=== PATIENT | female | born 1955 | race Caucasian/White ===

== ENCOUNTER 2017-02-03 19:05 | Inpatient (IN) | payer OTHER ==
[2017-02-03] MEDS ORDERED: RX INFO: IV CONTRAST WAS GIVEN 1 EACH MISC MISCELLANE PRN (19:26)
--- NOTE | 2017-02-03 19:27 | ED ---
Chest Pain HPI - General Chief Complaint: Chest Pain Stated Complaint: chest pain Time Seen by Provider: 02/03/17 19:10 Source: patient Mode of arrival: wheelchair Limitations: no limitations - History of Present Illness Initial Comments: This patient is a 61-year-old woman with history of previous DVT, who presents to be evaluated because she is having left thigh pain and also some chest tightness and feeling short of breath. She states that the pain was reminding her of what she had with previous PE. MD Complaint: chest pain -: days(s) Onset: during rest Pain Location: left chest, right chest Pain Radiation: none Severity: moderate Quality: tightness Consistency: constant Improves With: nothing Worsens With: nothing Treatments Prior to Arrival: none - Related Data Home Medications Medication Instructions Recorded Confirmed Furosemide [Lasix] 40 mg PO DAILY PRN 10/14/15 03/21/16 Omeprazole [PriLOSEC] 20 mg PO [id number] 10/14/15 03/22/16 Previous Rx's Medication Instructions Recorded Enoxaparin [Lovenox] 100 mg SQ Q12H #1 syr 10/19/15 Fluticasone Nasal [place] [Flonase 1 spray EA NOSTRIL DAILY #1 spr 10/19/15 Nasal [place]] Montelukast [Singulair] 10 mg PO HS #30 tab 10/19/15 Oxybutynin Chloride [Ditropan] 5 mg PO DAILY #0 10/19/15 oxyCODONE-APAP 7.5-325MG [Percocet 1 each PO Q6HR PRN #28 tab 10/19/15 7.5-325 mg] traZODone HCL 150 mg PO HS #0 10/19/15 Allergies Allergy/AdvReac Type Severity Reaction Status Date / Time codeine Allergy Rash/Hives Verified 02/03/17 19:19 hydrocodone bitartrate Allergy Rash/Hives Verified 02/03/17 19:19 [From [place]] Review of Systems ROS Statement: Those systems with pertinent positive or pertinent negative responses have been documented in the HPI. ROS Other: All systems not noted in ROS Statement are negative. Constitutional: Denies: fever, chills Respiratory: Reports: dyspnea. Denies: cough, wheezes, hemoptysis Cardiovascular: Reports: chest pain. Denies: palpitations, edema, syncope Gastrointestinal: Denies: abdominal pain, nausea, vomiting Genitourinary: Denies: dysuria, hematuria Musculoskeletal: Denies: back pain Skin: Denies: rash Neurological: Denies: headache, weakness, numbness (Eye:) EKG Findings - EKG Results: EKG: interpreted by LANCE, sinus rhythm (78) - Blocks, [place], Hypertrophy, ST Abn: QRS axis and voltage: left axis deviation (-30 to -90) Repolarization changes or abnormalities: Q-T interval prolongation Past Medical History Past Medical History: Deep Vein Thrombosis (DVT), GERD/Reflux, Pulmonary Embolus (PE) Additional Past Medical History / Comment(s): MTHFR "coke bottle" L leg, beginning macular degeneration bilat, sinus problems. History of Any Multi-Drug Resistant Organisms: None Reported Past Surgical History: Appendectomy, Cholecystectomy, Hysterectomy, Orthopedic Surgery Additional Past Surgical History / Comment(s): Kaylyn filter, L achilles tendon repair, left leg stents 3 or 4, R rotator cuff repair, bilateral knee arthroscopies, 2012 ccath normal, GABI, bronchoscopy. Past Anesthesia/Blood Transfusion Reactions: No Reported Reaction, Motion Sickness Additional Past Anesthesia/Blood Transfusion Reaction / Comment(s): Pt has clausterphobia Past Psychological History: Depression Additional Psychological History / Comment(s): Pt resides with her spouse. She uses no device (she does have a cane but choses not to use it at this point), she drives. She is the mother of 11 children and is expecting their 9th grandchild. 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 She drives. Smoking Status: Never smoker Past Alcohol Use History: None Reported Past Drug Use History: None Reported - Past Family History Father Family Medical History: Cancer Additional Family Medical History / Comment(s): Father had bladder cancer and lung cancer. Mother Family Medical History: Cancer, Deep Vein Thrombosis (DVT) Additional Family Medical History / Comment(s): Mother of ovarian cancer, General Exam Limitations: no limitations General appearance: alert, in no apparent distress Head exam: Present: atraumatic, normocephalic Eye exam: Present: normal appearance. Absent: scleral icterus, conjunctival injection Neck exam: Present: normal inspection, full ROM Respiratory exam: Present: normal lung sounds bilaterally. Absent: respiratory distress, wheezes, rales, rhonchi Cardiovascular Exam: Present: regular rate, normal rhythm, normal heart sounds GI/Abdominal exam: Present: soft (we're). Absent: distended, tenderness, guarding, rebound Extremities exam: Present: normal inspection, normal capillary refill. Absent: pedal edema, calf tenderness Back exam: Present: normal inspection. Absent: CVA tenderness (R), CVA tenderness (L) Neurological exam: Present: alert Skin exam: Present: warm, dry, intact, normal color. Absent: rash Course Vital Signs 02/03/17 02/03/17 19:16 21:40 Temperature 97.7 F Pulse Rate 67 75 Respiratory 20 16 Rate Blood Pressure 143/78 147/78 O2 Sat by Pulse 97 96 Oximetry Disposition Clinical Impression: Chest pain Disposition: ADMITTED IP TO THIS HOSP Condition: Fair Referrals: Luis Manuel Roberts MD [Primary Care Provider] - 1-2 days
[2017-02-03 20:58] LABS: Aty Lym Flag Slight; CH 31.8; CHCM 34.8; HCT 37.3 % (34.0-46.0); HGB 12.7 gm/dL (11.4-16.0); MCH 31.3 pg (25.0-35.0); MCHC 34.1 g/dL (31.0-37.0); MCV 91.8 fL (80.0-100.0); Mean Platelet Volume 7.2; RBC 4.06 m/uL (3.80-5.40); WBC 5.5 k/uL (3.8-10.6); WBC (Perox) 5.42
--- NOTE | 2017-02-03 21:02 | CT ---
EXAMINATION TYPE: CT chest angio for PE DATE OF EXAM: 02/03/2017 COMPARISON: CTA chest March 13, 2016. HISTORY: SOB and chest tightness. CT DLP: 462.6 mGycm. Automated Exposure Control for Dose Reduction was Utilized. CONTRAST: CTA scan of the thorax is performed with IV Contrast, patient injected with 70 mL of Omnipaque 350, p ulmonary embolism protocol. MIP Images are created on CT scanner and reviewed. FINDINGS: LUNGS: The lungs are grossly clear, there is no concerning parenchymal mass or nodule identified. T here is no pleural effusion or pneumothorax seen. The tracheobronchial tree is patent. MEDIASTINUM: There is satisfactory enhancement of the pulmonary artery and its branches, there is no CT evidence for pulmonary embolism. There are no greater than 1 cm hilar or mediastinal lymph nodes. No cardiomegaly or pericardial effusion is seen. OTHER: Visualized spleen is somewhat prominent. IMPRESSION: No CT evidence for pulmonary embolism. No suspicious acute pulmonary process.
[2017-02-03 21:14] LABS: Add Differential Manual Differential
[2017-02-03 21:17] LABS: ALT 50 U/L (9-52); AST 27 U/L (14-36); Alkaline Phosphatase 75 U/L (38-126); Anion Gap 13 mmol/L; Blood Urea Nitrogen 13 mg/dL (7-17); Calcium 9.7 mg/dL (8.4-10.2); Carbon Dioxide 22 mmol/L (22-30); Chloride 108 mmol/L (98-107); Glucose 108 mg/dL (74-99); Magnesium 1.8 mg/dL (1.6-2.3); Manual Review Performed; Non-African American GFR(MDRD) >60 (>60 ml/min/1.73 sqM); Nucleated Red Blood Cells 0 /100 WBC (0-0); Potassium 3.8 mmol/L (3.5-5.1); RBC Morphology Normal; Sodium 143 mmol/L (137-145); Total Bilirubin 0.4 mg/dL (0.2-1.3); Total Cells Counted 100; Total Protein 7.2 g/dL (6.3-8.2)
[2017-02-03 21:20] LABS: INR 1.2 (<1.1); Prothrombin Time 12.3 sec (9.0-12.0)
[2017-02-03 21:23] LABS: Creatine Kinase 131 U/L (30-135)
[2017-02-03 21:25] LABS: Partial Thromboplastin Time 22.3 sec (22.0-30.0)
[2017-02-03 21:37] LABS: Troponin I <0.012 ng/mL (0.000-0.034)
[2017-02-03 21:42] LABS: Creatine Kinase MB 2.6 ng/mL (0.0-2.4)
[2017-02-03] MEDS ORDERED: NITROGLYCERIN SL TABS 0.4 MG TAB SUBLINGUAL PRN (22:18)
[2017-02-03] MEDS ORDERED: ENOXAPARIN 100 MG/ML SYRINGE SQ SCH (23:23)
[2017-02-03] MEDS ORDERED: FUROSEMIDE 40 MG TAB PO PRN (23:53)
[2017-02-03] MEDS ORDERED: ACETAMINOPHEN TAB 500 MG TAB PO PRN (23:53)
[2017-02-03] MEDS ORDERED: HYDROmorphone 2 MG/ML 1 ML SYRINGE IVP PRN (23:57)
[2017-02-03] MEDS ORDERED: HYDROmorphone 1 MG/ML 1 ML SYRINGE IVP PRN (23:57)
[2017-02-04] MEDS ORDERED: ENOXAPARIN 150 MG/ML SYRINGE SQ SCH (00:30)
[2017-02-04] MEDS: oxyCODONE-APAP 7.5-325MG 1 EACH TAB PO PRN ×2 (03:26→20:53)
[2017-02-04 03:29] LABS: Cholesterol 184 mg/dL (<200); HDL Cholesterol 46 mg/dL (40-60); Triglycerides 182 mg/dL (<150)
[2017-02-04 03:48] LABS: Creatine Kinase 89 U/L (30-135)
[2017-02-04 04:00] LABS: Creatine Kinase MB 1.9 ng/mL (0.0-2.4); Troponin I <0.012 ng/mL (0.000-0.034)
[2017-02-04 08:34] LABS: Creatine Kinase 79 U/L (30-135)
[2017-02-04 08:47] LABS: Creatine Kinase MB 1.5 ng/mL (0.0-2.4); Troponin I <0.012 ng/mL (0.000-0.034)
[2017-02-04] MEDS: OXYBUTYNIN CHLORIDE 5 MG TAB PO SCH ×2 (08:51→20:58)
[2017-02-04] MEDS: PANTOPRAZOLE 40 MG TABLET PO SCH ×2 (08:51→20:58)
[2017-02-04] MEDS: MELOXICAM 7.5 MG TAB PO SCH ×2 (08:51→20:57)
[2017-02-04] MEDS: FLUTICASONE 50MCG/SPRAY NASAL 16GM EA NOSTRIL SCH (08:52)
[2017-02-04] MEDS ORDERED: ENOXAPARIN 100 MG/ML SYRINGE SQ SCH ×2 (09:00→21:00)
--- NOTE | 2017-02-04 09:52 | US ---
EXAMINATION TYPE: US venous doppler duplex LE LT DATE OF EXAM: 02/04/2017 9:31 AM COMPARISON: Bilateral lower extremity venous ultrasound May 14, 2016 CLINICAL HISTORY: left thigh pain. Pain left thigh, history of DVT, patient on blood thinner SIDE PERFORMED: Left TECHNIQUE: The lower extremity deep venous system is examined utilizing real time linear array sonog tasha with graded compression, doppler sonography and color-flow sonography. VESSELS IMAGED: External Iliac Vein (EIV) Common Femoral Vein Deep Femoral Vein Greater Saphenous Vein * Femoral Vein Popliteal Vein Small Saphenous Vein * Proximal Calf Veins (* superficial vessels) Left Leg: Positive for DVT left CFV, femoral vein, and popliteal vein. Thready flow noted at these l evels There is incomplete compressibility beginning at common femoral vein level on the left groin extendin g through superficial femoral vein into popliteal vein with patent but diminished color flow. IMPRESSION: There is long segment acute partial occlusive DVT in the left lower extremity now pres ent.
[2017-02-04] MEDS ORDERED: ENOXAPARIN 100 MG/ML SYRINGE SQ STA (11:58)
--- NOTE | 2017-02-04 12:17 | P.HPIM ---
History of Present Illness H&P Date: 02/04/17 Chief Complaint: Left thigh pain, partially occluded DVT This is a 7-year-old patient well-known to Dr. Roberts and myself a previous history of DVT multiple DVTs who presented because of to be evaluated to the emergency room because of left thigh pain and some chest tightness and general shortness of breath. Patient states the pain remainder of when she had a previous pulmonary embolus. 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 Patient also has a history of a Kaylyn filter placement. Review of Systems Constitutional: Reports as per HPI Ears, nose, mouth and throat: Reports as per HPI Cardiovascular: Reports chest pain, Reports shortness of breath Respiratory: Reports dyspnea Gastrointestinal: Reports as per HPI Genitourinary: Reports as per HPI Musculoskeletal: Reports leg numbness/tingling, Reports shooting leg pain Integumentary: Reports as per HPI Neurological: Reports as per HPI Psychiatric: Reports as per HPI Endocrine: Reports as per HPI Hematologic/Lymphatic: Reports as per HPI Allergic/Immunologic: Reports as per HPI Past Medical History Past Medical History: Deep Vein Thrombosis (DVT), GERD/Reflux, Pulmonary Embolus (PE) Additional Past Medical History / Comment(s): MTHFR "coke bottle" L leg, beginning macular degeneration bilat, sinus problems. History of Any Multi-Drug Resistant Organisms: None Reported Past Surgical History: Appendectomy, Cholecystectomy, Hysterectomy, Orthopedic Surgery Additional Past Surgical History / Comment(s): Kaylyn filter, L achilles tendon repair, left leg stents 3 or 4, R rotator cuff repair, bilateral knee arthroscopies, 2012 [facility]ca normal, GABI, bronchoscopy. Past Anesthesia/Blood Transfusion Reactions: No Reported Reaction, Motion Sickness Additional Past Anesthesia/Blood Transfusion Reaction / Comment(s): Pt has clausterphobia Past Psychological History: No Psychological Hx Reported Additional Psychological History / Comment(s): Pt resides with her spouse. She uses no device (she does have a cane but choses not to use it at this point), she drives. She is the mother of 11 children and 8 grandchildren. 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 She drives. Smoking Status: Never smoker Past Alcohol Use History: None Reported Past Drug Use History: None Reported - Past Family History Father Family Medical History: Cancer Additional Family Medical History / Comment(s): Father had bladder cancer and lung cancer. Mother Family Medical History: Cancer, Deep Vein Thrombosis (DVT) Additional Family Medical History / Comment(s): Mother of ovarian cancer, Medications and Allergies Home Medications Medication Instructions Recorded Confirmed Type RX: Furosemide [Lasix] 40 mg PO DAILY PRN 10/14/15 02/04/17 History RX: Omeprazole [PriLOSEC] 20 mg PO BID 10/14/15 02/04/17 History Acetaminophen [Tylenol] 500 mg PO QID PRN 02/03/17 02/04/17 History Enoxaparin [Lovenox] 100 mg SQ DAILY 02/03/17 02/04/17 History Ergocalciferol (Vitamin D2) 50,000 unit PO SA 02/03/17 02/04/17 History [Vitamin D2] RX: Meloxicam [Mobic] 7.5 mg PO BID 02/03/17 02/04/17 History RX: Oxybutynin Chloride [Ditropan] 5 mg PO BID 02/03/17 02/04/17 History oxyCODONE-APAP 7.5-325MG [Percocet 1 tab PO Q6HR PRN 02/04/17 02/04/17 History 7.5-325 mg] Allergies Allergy/AdvReac Type Severity Reaction Status Date / Time adhesive Allergy Rash/Hives Verified 02/04/17 09:50 codeine Allergy Rash/Hives Verified 02/04/17 09:49 egg Allergy Nausea & Verified 02/03/17 22:58 Vomiting hydrocodone bitartrate Allergy Rash/Hives Verified 02/04/17 09:49 [From [place]] Physical Exam Osteopathic Statement: *. No significant issues noted on an osteopathic structural exam other than those noted in the History and Physical/Consult. Vitals: Vital Signs Temp Pulse Pulse Resp BP BP Pulse Ox 02/04/17 11:35 97.9 F 69 16 168/83 95 02/04/17 07:35 97.7 F 69 16 141/64 96 02/04/17 04:00 98 F 80 18 140/71 98 02/03/17 23:29 18 02/03/17 23:20 98.1 F 73 18 166/80 97 02/03/17 22:36 79 16 152/71 95 02/03/17 21:40 75 16 147/78 96 02/03/17 19:16 97.7 F 67 20 143/78 97 Intake and Output 02/03/17 02/04/17 02/04/17 22:59 06:59 14:59 Other: Voiding Method Toilet Toilet # Voids 1 Weight 106.141 kg General: [Patient awake, alert and oriented times 3. Patient in no acute distress.] HEENT: [PERRL. EOMI. No pharyngeal erythema or exudate.] Neck: [No adenopathy.] Cardiac: [Heart regular in rate and rhythm. No S3. No S4. No clicks, rubs. No murmur.] Lungs: [Clear to auscultation bilaterally.] Abdomen: [No mass. No organomegaly. Bowel sounds presnt and normoactive in all 4 quadrants.] Extremes: Left flank tenderness numbness mid thigh to the knee with compressible tenderness Musculoskeletal: [No joint erythema, edema or tenderness.] Skin: [No rash.] Neurologic: [No lateralizing deficits. CN II - XII grossly intact.] Lymphatic: [No adenopathy.] Results CBC & Chem 7: 02/03/17 20:14 02/03/17 20:14 Labs: Abnormal Lab Results - Last 24 Hours (Table) 02/03/17 02/03/17 02/03/17 Range/Units 20:14 20:14 20:14 PT 12.3 H (9.0-12.0) sec Chloride 108 H (98-107) mmol/L Glucose 108 H (74-99) mg/dL CK-MB (CK-2) 2.6 H* (0.0-2.4) ng/mL Triglycerides (<150) mg/dL LDL Cholesterol, Calc (0-99) mg/dL 02/04/17 Range/Units 02:11 PT (9.0-12.0) sec Chloride (98-107) mmol/L Glucose (74-99) mg/dL CK-MB (CK-2) (0.0-2.4) ng/mL Triglycerides 182 H (<150) mg/dL LDL Cholesterol, Calc 102 H (0-99) mg/dL Thrombosis Risk Factor Assmnt - DVT/VTE Prophylaxis DVT/VTE Prophylaxis: Pharmacologic Prophylaxis ordered - Choose All That Apply Any of the Below Risk Factors Present?: Yes Each Factor Represents 1 point: Age 41-60 years, Hx of IBD, Obesity (BMI >25), Swollen legs (current), Varicose veins Other Risk Factors: Yes Each Risk Factor Represents 3 Points: Positive Factor V Leiden, History of DVT/ PE Other congenital or acquired thrombophilia - If yes, enter type in comment: No Thrombosis Risk Factor Assessment Total Risk Factor Score: 11 Thrombosis Risk Factor Assessment Level: High Risk Assessment and Plan (1) Chest pain Narrative/Plan: Negative troponins and EKG is unremarkable, cardiology evaluated patient chest pain atypical noncardiac in nature Also patient's CT demonstrated no pulmonary embolus Status: Acute (2) Hx of deep venous thrombosis Narrative/Plan: Doppler study of the bilateral lower extremes demonstrated a left lower extreme basic thigh to knee occlusion thrombosis with incomplete Status: Acute (3) Pulmonary embolism Narrative/Plan: Left lower extremity DVT patient is currently on 100 units of Lovenox in the morning and 100 units of Lovenox in the evening We will also be consulting Dr. Knox for this patient Status: Acute Plan: Well-known patient history of factor V [place] Left leg DVT mid thigh to knee Lovenox 100 units every 12 hours We'll be consulting Dr. Knox Hem/onc Further orders to follow Time with Patient: Greater than 30
[2017-02-04] MEDS: ASPIRIN 325 MG TAB PO SCH (12:31)
--- NOTE | 2017-02-04 16:36 | CONS ---
DATE OF CONSULTATION: Seema Estrada is a 61-year-old lady with a diagnosis of hypercoagulable state of unclear etiology, takes 100 mg of Lovenox on a regular basis by injections daily, sees Dr. Biggs, Dr. Moran and her primary care physician. She is a reasonably active lady. Yesterday, she has been under a lot of stress she had an episode which she described as a sensation of chest discomfort and came into the hospital, was very much concerned that this is a pulmonary embolism that she has had before. Fortunately CT angiography was negative. D-dimer is unremarkable. She also has a history of DVT in the past and she probably has a chronic DVT in her ultrasound, but clearly no evidence suggesting any acute thrombus. She is resting comfortably without symptoms. Anxiety seems to be better. She had some pain in her left thigh which has also resolved. PAST MEDICAL HISTORY: 1. History of pulmonary embolism and deep venous thrombosis with hypercoagulable state. The details are unclear. 2. History of hypertension. 3. Gastroesophageal reflux disease. Medications at home include: 1. Lasix 40 mg daily p.r.n. 2. Omeprazole 20 mg daily. 3. Lovenox 100 mg subcu q.12 hours. 4. She had also takes Flonase. 5. Trazadone. ALLERGIES: CODEINE AND NORCO. On examination, blood pressure is 140/70, pulse is 80 per minute, regular. HEENT: Unremarkable. Fundus was not examined by me. Neck is supple. No JVD. I do not hear a carotid bruit, there is no thyromegaly. Heart exam reveals S1 and S2 heard normally without rub, murmur or gallop. Lungs are clear. ABDOMEN: Soft, nontender. Lower extremities reveal normal pulses. No edema. Central nervous system is normal. EKG revealed sinus mechanism, leftward axis, ( ) ICD nonspecific ST-T changes. D-dimer is normal. All troponins are normal. CT angiography was unremarkable for pulmonary embolism. IMPRESSION: 1. Atypical chest pain. 2. Anxiety. 3. No evidence to suggest any acute pulmonary embolism or acute deep venous thrombosis. RECOMMENDATIONS: I am recommending that we increase activity, and discharge her later on today and continue to Lovenox as before and follow up with Dr. Biggs and Dr. Moran as scheduled. Thank you very much for the consult.
[2017-02-04] MEDS ORDERED: diphenhydrAMINE 25 MG CAP PO PRN (19:47)
[2017-02-04] MEDS ORDERED: traZODone HCL 50 MG TAB PO SCH (21:00)
[2017-02-04] MEDS: TRIAMCINOLONE ACET 0.1% OINTMENT 15 GM TUBE TOPICAL PRN (23:04)
[2017-02-04] MEDS: ENOXAPARIN 100 MG/ML SYRINGE SQ SCH (23:14)
[2017-02-05] MEDS: TRIAMCINOLONE ACET 0.1% OINTMENT 15 GM TUBE TOPICAL PRN (06:33)
[2017-02-05] MEDS: PANTOPRAZOLE 40 MG TABLET PO SCH (06:33)
[2017-02-05 06:48] LABS: Aty Lym Flag Slight; CH 31.5; CHCM 33.8; HCT 38.6 % (34.0-46.0); HDW 2.64; HGB 12.8 gm/dL (11.4-16.0); MCHC 33.1 g/dL (31.0-37.0); MCV 93.8 fL (80.0-100.0); Mean Platelet Volume 7.2; RBC 4.12 m/uL (3.80-5.40); RDW 14.1 % (11.5-15.5); WBC 4.2 k/uL (3.8-10.6); WBC (Perox) 4.19
[2017-02-05 06:50] LABS: Anion Gap 11 mmol/L; Blood Urea Nitrogen 12 mg/dL (7-17); Calcium 9.3 mg/dL (8.4-10.2); Carbon Dioxide 23 mmol/L (22-30); Chloride 110 mmol/L (98-107); Glucose 117 mg/dL (74-99); Non-African American GFR(MDRD) >60 (>60 ml/min/1.73 sqM); Potassium 4.2 mmol/L (3.5-5.1); Sodium 144 mmol/L (137-145)
[2017-02-05] MEDS: ASPIRIN 325 MG TAB PO SCH (08:04)
[2017-02-05] MEDS: MELOXICAM 7.5 MG TAB PO SCH (08:04)
[2017-02-05] MEDS: OXYBUTYNIN CHLORIDE 5 MG TAB PO SCH (08:04)
[2017-02-05] MEDS: FLUTICASONE 50MCG/SPRAY NASAL 16GM EA NOSTRIL SCH (08:04)
[2017-02-05 08:10] VITALS: BP 137/80; PULSE 64; RESP 18; TEMP 96.8
[2017-02-05 08:45] LABS: Add Differential Manual Differential
[2017-02-05 08:48] LABS: Nucleated Red Blood Cells 0 /100 WBC (0-0); Total Cells Counted 200
[2017-02-05 08:49] LABS: Manual Review Performed; RBC Morphology Normal
--- NOTE | 2017-02-05 10:28 | CT ---
EXAMINATION TYPE: CT brain wo con DATE OF EXAM: 02/05/2017 COMPARISON: NONE INDICATION: Lt sided facial and upper ext numbness and tingling DLP: 1097 mGycm, Automated exposure control for dose reduction was used. CONTRAST: None CT of the brain is performed utilizing 3 mm thick sections through the posterior fossa and 3 mm thick sections through the remaining calvarium. Study is performed within 24 hours of arrival to the hosp ital. No abnormal hyperdensity is present to suggest an acute intracranial hemorrhage. No mass lesion is evident. No acute infarcts are evident. Ventricles and sulci are appropriate for the patient age. Some minimal mucosal thickening or small air-fluid level may be within the posterior right maxillary sinus. Mild right maxillary sinusitis should be considered. Remaining paranasal sinuses and mastoid a ir cells are clear. IMPRESSIONS: 1. Normal CT brain. 2. Correlate for mild right maxillary sinusitis.
[2017-02-05] MEDS: ENOXAPARIN 100 MG/ML SYRINGE SQ SCH (12:15)
--- NOTE | 2017-02-05 13:06 | P.DS ---
Providers Date of admission: 02/04/17 11:50 Expected date of discharge: 02/05/17 Attending physician: Diego Dejesus Consults: 02/03/17 22:18 Consult Physician Routine Consulting Provider: Diane Acharya Consult Reason/Comments: chest pain Do you want consulting provider notified?: Yes 02/04/17 17:57 Consult Physician Routine Consulting Provider: Mark Moran Consult Reason/Comments: pt of dr. Moran in with left leg dvt Do you want consulting provider notified?: Yes Primary care physician: Luis Manuel Roberts Hospital Course: Final diagnosis: Atypical chest pain. History of DVT/PE Localized edema. Vitamin D deficiency. Other primary thrombophilia. Major depression Migraine headache with aura Hospital course: Patient was admitted after having sudden onset of left thigh pain. She has significant history of chronic DVT in left leg. A venous Doppler showed long segment acute partial occlusive DVT in the left lower extremity that appear new. She takes Lovenox 100 mg daily for chronic DVT prophylaxis. CT chest was negative for PE. She had right-sided chest pain as well on this admission. She was concerned about a clot in her lung. Cardiology had seen her and cleared her from a cardiac standpoint. Hematology recommended increasing her Lovenox based on the new DVT. She also describes significant history of headaches and left facial numbness was worked up with CT brain. This was also negative. She'll follow up for outpatient workup and further treatment. Patient Condition at Discharge: Fair Plan - Discharge Summary New Discharge Prescriptions: Continue Omeprazole [PriLOSEC] 20 mg PO BID Furosemide [Lasix] 40 mg PO DAILY PRN PRN Reason: Edema Fluticasone Nasal [place] [Flonase Nasal [place]] 1 spray EA NOSTRIL DAILY #1 spr traZODone HCL 150 mg PO HS #0 Acetaminophen [Tylenol] 500 mg PO QID PRN PRN Reason: Pain Meloxicam [Mobic] 7.5 mg PO BID Oxybutynin Chloride [Ditropan] 5 mg PO BID Ergocalciferol (Vitamin D2) [Vitamin D2] 50,000 unit PO SA oxyCODONE-APAP 7.5-325MG [Percocet 7.5-325 mg] 1 tab PO Q6HR PRN PRN Reason: Pain Changed Enoxaparin [Lovenox] 100 mg SQ Q12HR #60 units Discharge Medication List Furosemide [Lasix] 40 mg PO DAILY PRN 10/14/15 [History] Omeprazole [PriLOSEC] 20 mg PO BID 10/14/15 [History] Fluticasone Nasal [place] [Flonase Nasal [place]] 1 spray EA NOSTRIL DAILY #1 spr [Rx] traZODone HCL 150 mg PO HS #0 10/19/15 [Rx] Acetaminophen [Tylenol] 500 mg PO QID PRN 02/03/17 [History] Ergocalciferol (Vitamin D2) [Vitamin D2] 50,000 unit PO SA 02/03/17 [History] Meloxicam [Mobic] 7.5 mg PO BID 02/03/17 [History] Oxybutynin Chloride [Ditropan] 5 mg PO BID 02/03/17 [History] oxyCODONE-APAP 7.5-325MG [Percocet 7.5-325 mg] 1 tab PO Q6HR PRN 02/04/17 [ History] Enoxaparin [Lovenox] 100 mg SQ Q12HR #60 units 02/05/17 [Rx] Follow up Appointment(s)/Referral(s): Luis Manuel Roberts MD [Primary Care Provider] - 1-2 days Mark Moran MD [STAFF PHYSICIAN] - 1 Week Patient Instructions/Handouts: Deep Venous Thrombosis (DC) Discharge Disposition: HOME SELF-CARE
[2017-02-05] MEDS ORDERED: LORazepam 2 MG/ML SYRINGE ONE (13:38)
--- NOTE | 2017-02-05 14:47 | P.PN ---
Subjective Principal diagnosis: Atypical chest pain This is a 61-year-old female with history of pulmonary embolism, DVT, hypercoagulable state, hypertension, GERD, she follows with Dr. Moran in the office. Patient presented to the hospital with atypical chest discomfort. Currently being worked up by neurology. Blood pressure 132/80 with a heart rate in the 60s. Troponins negative 3. Patient seen and examined this morning , denies any further chest discomfort. Objective - Vital Signs Vital signs: Vital Signs Temp 96.8 F L 02/05/17 08:00 Pulse 64 02/05/17 08:00 Resp 18 02/05/17 08:00 BP 137/80 02/05/17 08:00 Pulse Ox 97 02/05/17 08:00 Intake & Output 02/04/17 02/05/17 02/05/17 18:59 06:59 18:59 Intake Total 480 240 Output Total 700 Balance -220 240 Weight 105.7 kg Intake: Oral 480 240 Output: Urine 700 Other: Voiding Method Toilet Toilet # Voids 3 2 - Exam PHYSICAL EXAMINATION: HEENT: Head is atraumatic, normocephalic. Pupils equal, round. Neck is supple. There is no elevated jugular venous pressure. HEART EXAMINATION: Heart S1, S2 normal. No murmur or gallop heard. CHEST EXAMINATION: Lungs are clear to auscultation and precussion. No chest wall tenderness is noted on palpation or with deep breathing. ABDOMEN: Soft, nontender. Bowel sounds are heard. No organomegaly noted. EXTREMITIES: 2+ peripheral pulses with no evidence of peripheral edema and no calf tenderness noted. NEUROLOGIC patient is awake, alert and oriented -3. . - Labs CBC & Chem 7: 02/05/17 06:22 02/05/17 06:22 Labs: Abnormal Lab Results - Last 24 Hours (Table) 02/05/17 Range/Units 06:22 Chloride 110 H (98-107) mmol/L Glucose 117 H (74-99) mg/dL Assessment and Plan (1) Atypical angina Status: Acute (2) Pulmonary embolism Status: Acute (3) Hypercoagulable state Status: Acute Plan: Cardiology's perspective, patient may be able to be discharged home once cleared by the primary. We'll make her a follow-up appointment to see Dr. Hinojosa in the office post discharge. DNP note has been reviewed, I agree with a documented findings and plan of care. Patient was seen and examined.
--- NOTE | 2017-02-05 17:33 | P.CONS ---
History of Present Illness - Reason for Consult Consult date: 02/05/17 DVT, recurrent Requesting physician: Diego Dejesus Jr - Chief Complaint chest pain, left thigh pain - History of Present Illness Seema is a very pleasant female pt of Dr. Moran on lifetime anticoagulation for recurrent PE/DVT, she has been seen in our office since at least 2011. She tolerated coumadin well overall through the years, she did try once of the NOAC's but suffered MS aces so she went back on coumadin. Last year in Sep she presented to the office with c/o SOB and dyspnea on exertion, she was found at that time to have RML and RLL PE, the LLE doppler was read as negative for DVT, echocardiogram was suspicious for cardiac thrombus, GABI confirmed cardiac thrombus. Pt was placed on lovenox 150mg SQ daily. She states the dose was reduced to 100mg daily, not exactly sure of date. Pt states that for about 3 weeks she was having chest discomfort, progressive, she also was noticing left thigh tightness and discomfort, then she experienced numbness/tingling on her left side including her face- denies vision changes, slurred speech or falling- she was encouraged by her family to seek medical attention so she came to hospital. LLE DVT was noted on doppler, no evidence of PE on CTA, work up for HI has been negative, labs reviewed. Pt doing well today, she feels better other then her thigh still being tight, she broke her left foot 5th digit last week, it is bruised and her foot is swollen, denies any other trauma, travel or illness. Review of Systems All systems: negative Constitutional: Reports as per HPI Past Medical History Past Medical History: Deep Vein Thrombosis (DVT), GERD/Reflux, Pulmonary Embolus (PE) Additional Past Medical History / Comment(s): MTHFR "coke bottle" L leg, beginning macular degeneration bilat, sinus problems. History of Any Multi-Drug Resistant Organisms: None Reported Past Surgical History: Appendectomy, Cholecystectomy, Hysterectomy, Orthopedic Surgery Additional Past Surgical History / Comment(s): [place] filter, L achilles tendon repair, left leg stents 3 or 4, R rotator cuff repair, bilateral knee arthroscopies, 2012 ccath normal, GABI, bronchoscopy. Past Anesthesia/Blood Transfusion Reactions: No Reported Reaction, Motion Sickness Additional Past Anesthesia/Blood Transfusion Reaction / Comm: Pt has clausterphobia Past Psychological History: No Psychological Hx Reported Additional Psychological History / Comment(s): Pt resides with her spouse. She uses no device (she does have a cane but choses not to use it at this point), she drives. She is the mother of 11 children and 8 grandchildren. 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 She drives. Smoking Status: Never smoker Past Alcohol Use History: None Reported Past Drug Use History: None Reported - Past Family History Father Family Medical History: Cancer Additional Family Medical History / Comment(s): Father had bladder cancer and lung cancer. Mother Family Medical History: Cancer, Deep Vein Thrombosis (DVT) Additional Family Medical History / Comment(s): Mother of ovarian cancer, Medications and Allergies Home Medications Medication Instructions Recorded Confirmed Type Furosemide [Lasix] 40 mg PO DAILY PRN 10/14/15 02/04/17 History Omeprazole [PriLOSEC] 20 mg PO BID 10/14/15 02/04/17 History Acetaminophen [Tylenol] 500 mg PO QID PRN 02/03/17 02/04/17 History Ergocalciferol (Vitamin D2) 50,000 unit PO SA 02/03/17 02/04/17 History [Vitamin D2] Meloxicam [Mobic] 7.5 mg PO BID 02/03/17 02/04/17 History Oxybutynin Chloride [Ditropan] 5 mg PO BID 02/03/17 02/04/17 History oxyCODONE-APAP 7.5-325MG [Percocet 1 tab PO Q6HR PRN 02/04/17 02/04/17 History 7.5-325 mg] Allergies Allergy/AdvReac Type Severity Reaction Status Date / Time adhesive Allergy Rash/Hives Verified 02/04/17 09:50 codeine Allergy Rash/Hives Verified 02/04/17 09:49 egg Allergy Nausea & Verified 02/03/17 22:58 Vomiting hydrocodone bitartrate Allergy Rash/Hives Verified 02/04/17 09:49 [From [place]] Physical Exam Vitals: Vital Signs Temp Pulse Resp BP Pulse Ox 02/05/17 08:00 96.8 F L 64 18 137/80 97 02/05/17 04:00 97.1 F L 74 17 118/63 91 L 02/05/17 00:00 97.3 F L 78 16 147/74 98 02/04/17 20:00 97.1 F L 78 16 147/74 98 Intake and Output 02/05/17 02/05/17 02/05/17 06:59 14:59 22:59 Intake Total 480 240 Output Total 350 Balance 130 240 Intake: Oral 480 240 Output: Urine 350 Other: Voiding Method Toilet # Voids 2 Weight 105.7 kg - Constitutional General appearance: cooperative, no acute distress, obese - EENT Eyes: EOMI, normal appearance ENT: normal oropharynx - Neck Neck: no lymphadenopathy - Respiratory Respiratory: bilateral: CTA - Cardiovascular Heart sounds: normal: S1, S2 leg Peripheral Edema: right: Trace, left: 2+ (foot>calf) - Gastrointestinal General gastrointestinal: no absent bowel sounds, no decreased bowel sounds, no distended, no hepatomegaly, no hyperactive bowel sounds, normal bowel sounds, no organomegaly, no rigid, no scaphoid, soft, no splenomegaly, no tenderness, no umbilical hernia, no ventral hernia - Integumentary Integumentary: normal - Neurologic Neurologic: CNII-XII intact - Musculoskeletal Left 5th digit is bruised Musculoskeletal: strength equal bilaterally - Psychiatric Psychiatric: A&O x's 3, appropriate affect, intact judgment & insight Results CBC & Chem 7: 02/05/17 06:22 02/05/17 06:22 Labs: Abnormal Lab Results - Last 24 Hours (Table) 02/05/17 Range/Units 06:22 Chloride 110 H (98-107) mmol/L Glucose 117 H (74-99) mg/dL Comments: BLE doppler and CTA Reports from 09/[address] scan - chest: report reviewed CT Scan - head: report reviewed Venous US: report reviewed Assessment and Plan (1) Recurrent deep vein thrombosis (DVT) of left lower extremity Narrative/Plan: Pt case reviewed extensively with review of all reports from last year and it appears that pt has resolved PE but new LLE DVT. Her dose of lovenox was increased to 100mg BID and Hematology agrees with that plan at this time. Rx was sent to pt pharmacy of choice, will sched f/u in office in the next 1-2 weeks. Pt ok from Hem standpoint to be discharged to home once cleared by Attending. Status: Acute (2) Hx of deep venous thrombosis Status: Chronic
[2017-02-10] MEDS ORDERED: ERGOCALCIFEROL 50,000 UNIT CAP PO SCH (09:00)
== END 2017-02-05 13:49 | disposition home or self-care (01) | DRG 300 ==
LOC: EC 19:05 → 3OBS 22:20 → OBSVTOIN 02-04 11:50 → 6SEL 02-04 12:32
PROVIDERS: ADMIT Family Medicine; ATTEND Family Medicine
DX: I82.402 Acute embolism and thrombosis of unspecified deep veins of left lower extremity (principal); E72.12 Methylenetetrahydrofolate reductase deficiency; D68.59 Other primary thrombophilia; H35.30 Unspecified macular degeneration; K21.9 Gastro-esophageal reflux disease without esophagitis; R07.89 Other chest pain; I82.502 Chronic embolism and thrombosis of unspecified deep veins of left lower extremity; F41.9 Anxiety disorder, unspecified; I10 Essential (primary) hypertension; G43.109 Migraine with aura, not intractable, without status migrainosus; E55.9 Vitamin D deficiency, unspecified; F32.9 Major depressive disorder, single episode, unspecified; Z86.711 Personal history of pulmonary embolism; Z95.828 Presence of other vascular implants and grafts; Z90.49 Acquired absence of other specified parts of digestive tract; Z90.710 Acquired absence of both cervix and uterus; Z79.01 Long term (current) use of anticoagulants; Z79.1 Long term (current) use of non-steroidal anti-inflammatories (NSAID); Z79.899 Other long term (current) drug therapy; Z88.5 Allergy status to narcotic agent; Z88.9 Allergy status to unspecified drugs, medicaments and biological substances; Z91.012 Allergy to eggs
CPT/HCPCS: 36415; 70450; 71275; 80048; 80053; 80061; 82550; 82553; 83735; 83880; 84484; 85025; 85379; 85610; 85730; 93005

== ENCOUNTER 2017-04-09 16:57 | Observation (INO) | payer OTHER ==
[2017-04-09] MEDS ORDERED: NITROGLYCERIN OINT 1 INCH/GM PACKET TOPICAL STA (17:32)
[2017-04-09] MEDS ORDERED: ASPIRIN 81 MG CHEW PO STA (17:32)
[2017-04-09] MEDS ORDERED: RX INFO: IV CONTRAST WAS GIVEN 1 EACH MISC MISCELLANE PRN (17:33)
--- NOTE | 2017-04-09 17:41 | ED ---
Chest Pain HPI - General Chief Complaint: Chest Pain Stated Complaint: Chest Pain, tingling in arms Time Seen by Provider: 04/09/17 17:23 Source: patient Mode of arrival: ambulatory Limitations: no limitations - History of Present Illness Initial Comments: This 62-year-old white female presents with some chest pain. This is described as a pressure type sensation in her midsternal region which radiates posteriorly. She also has had some pain and numbness in her arms and legs. She complains of some cramping present to her bilateral legs with the left being worse in the right. She has a history of blood coagulation disorders and subsequent DVTs of her left lower extremity and left upper extremity with subsequent pulmonary embolisms. She is currently on Lovenox shots twice daily. She denies missing any of her medications. She has had associated shortness of breath. Her symptoms started 2 days ago. She is quite worried about additional DVT or PE. She apparently had a echocardiogram 2 weeks ago through her field service engineer and this did show some "thickened valves". She is scheduled to have a stress test in 9 days. She states that her last stress test was quite some time ago and she is unsure of the exact date. She denies any other complaints or modifying factors. No fevers or chills, no cough. - Related Data Home Medications Medication Instructions Recorded Confirmed Furosemide [Lasix] 40 mg PO DAILY PRN 10/14/15 04/09/17 Omeprazole [PriLOSEC] 20 mg PO BID 10/14/15 04/09/17 Acetaminophen [Tylenol] 1,000 mg PO QID PRN 02/03/17 04/09/17 Ergocalciferol (Vitamin D2) 50,000 unit PO SA 02/03/17 04/09/17 [Vitamin D2] Meloxicam [Mobic] 7.5 mg PO BID 02/03/17 04/09/17 Oxybutynin Chloride [Ditropan] 5 mg PO BID 02/03/17 04/09/17 Potassium Chloride ER [K-Dur 10] 10 meq PO HS 04/09/17 04/09/17 Previous Rx's Medication Instructions Recorded traZODone HCL 150 mg PO HS #0 10/19/15 Enoxaparin [Lovenox] 100 mg SQ Q12HR #60 units 02/05/17 Allergies Allergy/AdvReac Type Severity Reaction Status Date / Time adhesive Allergy Rash/Hives Verified 04/09/17 18:44 codeine Allergy Rash/Hives Verified 04/09/17 18:44 egg Allergy Nausea & Verified 04/09/17 18:44 Vomiting & Diarrhea hydrocodone bitartrate Allergy Rash/Hives Verified 04/09/17 18:44 [From [place]] Review of Systems ROS Statement: Those systems with pertinent positive or pertinent negative responses have been documented in the HPI. ROS Other: All systems not noted in ROS Statement are negative. Past Medical History Past Medical History: Deep Vein Thrombosis (DVT), GERD/Reflux, Pulmonary Embolus (PE) Additional Past Medical History / Comment(s): MTHFR "coke bottle" L leg, factor 5, beginning macular degeneration bilat, sinus problems. History of Any Multi-Drug Resistant Organisms: None Reported Past Surgical History: Appendectomy, Cholecystectomy, Hysterectomy, Orthopedic Surgery Additional Past Surgical History / Comment(s): [place] filter, L achilles tendon repair, left leg stents 3 or 4, R rotator cuff repair, bilateral knee arthroscopies, 2012 ccath normal, GABI, bronchoscopy. Past Anesthesia/Blood Transfusion Reactions: No Reported Reaction, Motion Sickness Additional Past Anesthesia/Blood Transfusion Reaction / Comment(s): Pt has clausterphobia Past Psychological History: No Psychological Hx Reported Smoking Status: Never smoker Past Alcohol Use History: None Reported Past Drug Use History: None Reported - Past Family History Father Family Medical History: Cancer Additional Family Medical History / Comment(s): Father had bladder cancer and lung cancer. Mother Family Medical History: Cancer, Deep Vein Thrombosis (DVT) Additional Family Medical History / Comment(s): Mother of ovarian cancer, General Exam - General Exam Comments Initial Comments: GENERAL: The patient is well nourished and well hydrated. VITAL SIGNS: Heart rate, blood pressure, respiratory rate reviewed as recorded in nurse's notes. EYES: Pupils are round and reactive. Extraocular movements are intact. No conjunctival / lid redness or swelling. ENT: No external evidence of injury, swelling, or ecchymosis. Airway is patent. Throat is clear. NECK: Nontender. No swelling or evidence of injury. No subcutaneous emphysema. Trachea is midline. No thyroid mass. HEART: Regular rate and rhythm. Good peripheral pulses. LUNGS/CHEST: Breath sounds clear and equal bilaterally. No rales, rhonchi, or wheezes. No ecchymosis, subcutaneous emphysema. There is some mild reproducible tenderness noted in the midsternal region. ABDOMEN: Abdomen soft without tenderness. No palpable masses or organomegaly. No peritoneal signs. No abdominal wall swelling or ecchymosis. EXTREMITIES: There is some tenderness noted to the bilateral lower extremities diffusely worse on the left side. There is increased swelling noted to the left leg which apparently is chronic. Normal muscle tone and function. No thoracolumbar tenderness. NEUROLOGIC: Sensation is grossly intact. Cranial nerve exam reveals face is symmetrical, tongue is midline, speech is clear. SKIN: No abrasions or ecchymosis is noted. No induration or masses noted. PSYCHIATRIC: Alert and oriented. Appropriate behavior and judgment. Limitations: no limitations Course Vital Signs 04/09/17 04/09/17 17:03 19:31 Temperature 97.4 F L Pulse Rate 69 81 Respiratory 18 16 Rate Blood Pressure 133/82 125/75 O2 Sat by Pulse 98 97 Oximetry Chest Pain MDM - [facility] The patient was seen and examined. All diagnostics are reviewed. She had an EKG done which shows a normal sinus rhythm at a rate of 62. There are some flattened T waves noted in the lateral and inferior leads. The AL interval is 124, QRS duration is 94, and QTC intervals 442. She is given some aspirin as well as Nitropaste. The patient had a computed tomography scan of the chest which did not show any evidence of pulmonary embolism. The radiologist relates that there is some coarsening of the pulmonary interstitial markings. The patient clinically does not have any signs of pneumonia. There is no fever or elevated white blood cell count. She does receive some morphine for pain as well. She had a lower extremity venous Doppler ultrasound of her bilateral legs. This shows old DVT to her left leg but no new DVT to either leg. Is not felt as though her symptoms are related to pulmonary embolism or DVT at this time. The possibility of acute coronary syndrome certainly is possible. She is agreeable for admission. Case will be discussed with primary service in the near future and patient will be admitted for further treatment. Disposition Clinical Impression: Hx of deep venous thrombosis, Hypercoagulable state, Chest pain, Dyspnea, Hx of pulmonary embolus, Bilateral leg pain Disposition: ADMITTED IP TO THIS HOSP Condition: Fair Referrals: Luis Manuel Roberts MD [Primary Care Provider] - 1-2 days Time of Disposition: 20:04 Decision Date: 04/09/17 Decision Time: 20:04
[2017-04-09 18:08] LABS: ALT 48 U/L (9-52); AST 26 U/L (14-36); Alkaline Phosphatase 71 U/L (38-126); Anion Gap 10 mmol/L; Blood Urea Nitrogen 12 mg/dL (7-17); Carbon Dioxide 21 mmol/L (22-30); Chloride 108 mmol/L (98-107); Glucose 117 mg/dL (74-99); Magnesium 1.8 mg/dL (1.6-2.3); Non-African American GFR(MDRD) >60 (>60 ml/min/1.73 sqM); Potassium 3.9 mmol/L (3.5-5.1); Sodium 139 mmol/L (137-145); Total Bilirubin 0.2 mg/dL (0.2-1.3); Total Protein 7.1 g/dL (6.3-8.2)
[2017-04-09 18:10] LABS: Aty Lym Flag Slight; CH 31.5; CHCM 34.8; HCT 38.4 % (34.0-46.0); HDW 2.81; HGB 13.3 gm/dL (11.4-16.0); MCH 31.4 pg (25.0-35.0); MCHC 34.5 g/dL (31.0-37.0); Mean Platelet Volume 7.9; RBC 4.22 m/uL (3.80-5.40); RDW 14.4 % (11.5-15.5); WBC 4.3 k/uL (3.8-10.6); WBC (Perox) 4.12
[2017-04-09 18:16] LABS: INR 1.1 (<1.2); Partial Thromboplastin Time 24.1 sec (22.0-30.0); Prothrombin Time 11.3 sec (9.0-12.0)
[2017-04-09 18:20] LABS: Creatine Kinase 116 U/L (30-135)
[2017-04-09 18:33] LABS: Creatine Kinase MB 2.4 ng/mL (0.0-2.4); Troponin I <0.012 ng/mL (0.000-0.034)
--- NOTE | 2017-04-09 18:47 | CT ---
EXAMINATION TYPE: CT angio chest DATE OF EXAM: 04/09/2017 6:31 PM COMPARISON: 02/03/2017 HISTORY: Patient complains of chest pain and right arm numbness. CT DLP: 448.9 mGycm Automated exposure control for dose reduction was used. CONTRAST: CTA scan of the thorax is performed with IV Contrast, patient injected with 100 mL of Omnipaque 300, pulmonary embolism protocol. There are 3-D post processed images.. FINDINGS: There is coarsening of pulmonary interstitial markings. There is no sign of a pulmonary mass. There is no mediastinal adenopathy. Thoracic aorta is intact. I see no filling defects in the pulmona ry arteries. There is no pericardial effusion. There is no pleural effusion. IMPRESSION: NO EVIDENCE OF PULMONARY EMBOLISM. CARDIOMEGALY. THERE ARE NEW BILATERAL PULMONARY INTERSTITIAL INFIL TRATES COMPARED TO OLD EXAM.
[2017-04-09 18:48] LABS: Add Differential Manual Differential
[2017-04-09 18:51] LABS: Nucleated Red Blood Cells 0 /100 WBC (0-0); RBC Morphology Normal; Total Cells Counted 100
--- NOTE | 2017-04-09 19:28 | US ---
EXAMINATION TYPE: US venous doppler duplex LE BI DATE OF EXAM: 04/09/2017 7:12 PM COMPARISON: 02/04/2017 CLINICAL HISTORY: Pain. History of DVT in left leg, patient currently takes blood thinners SIDE PERFORMED: Bilateral TECHNIQUE: The lower extremity deep venous system is examined utilizing real time linear array sonog tasha with graded compression, doppler sonography and color-flow sonography. VESSELS IMAGED: External Iliac Vein (EIV) Common Femoral Vein Deep Femoral Vein Greater Saphenous Vein * Femoral Vein Popliteal Vein Small Saphenous Vein * Proximal Calf Veins (* superficial vessels) Right Leg: Negative for DVT Left Leg: Positive for non-occluding DVT from the left EIV to the distal popliteal veins IMPRESSION: No evidence of deep venous thrombosis in the right leg. There is evidence for some limited chronic deep venous thrombosis in the left leg. This is similar to old exam. I see no definite new left leg thrombus.
[2017-04-09] MEDS ORDERED: NITROGLYCERIN SL TABS 0.4 MG TAB SUBLINGUAL PRN (20:07)
[2017-04-09] MEDS ORDERED: ACETAMINOPHEN TAB 500 MG TAB PO PRN (20:11)
[2017-04-09] MEDS ORDERED: FUROSEMIDE 40 MG TAB PO PRN (20:11)
[2017-04-09] MEDS ORDERED: MORPHINE SULFATE 2 MG/ML SYRINGE IVP STA (20:12)
[2017-04-09] MEDS ORDERED: MELOXICAM 7.5 MG TAB PO SCH (21:00)
[2017-04-09] MEDS ORDERED: ENOXAPARIN 100 MG/ML SYRINGE SQ SCH (21:00)
[2017-04-09] MEDS ORDERED: POTASSIUM CHLORIDE ER 10 MEQ TAB.ER.PRT PO SCH (21:00)
[2017-04-09] MEDS ORDERED: traZODone HCL 100 MG TAB PO SCH (21:00)
[2017-04-09] MEDS ORDERED: OXYBUTYNIN CHLORIDE 5 MG TAB PO SCH (21:00)
[2017-04-09] MEDS ORDERED: HYDROmorphone 1 MG/ML 1 ML SYRINGE IVP STA (22:07)
[2017-04-10] MEDS ORDERED: NITROGLYCERIN OINT 1 INCH/GM PACKET TOPICAL SCH
[2017-04-10] MEDS ORDERED: METOCLOPRAMIDE 5 MG/ML 2 ML VIAL IVP STA (00:14)
[2017-04-10 00:40] LABS: Creatine Kinase 77 U/L (30-135)
[2017-04-10 00:54] LABS: Creatine Kinase MB 1.7 ng/mL (0.0-2.4); Troponin I <0.012 ng/mL (0.000-0.034)
[2017-04-10 06:08] LABS: Cholesterol 200 mg/dL (<200); HDL Cholesterol 40 mg/dL (40-60)
[2017-04-10 06:24] VITALS: TEMP 97.9
[2017-04-10 06:38] LABS: Creatine Kinase 60 U/L (30-135)
[2017-04-10 06:50] LABS: Creatine Kinase MB 1.4 ng/mL (0.0-2.4); Troponin I <0.012 ng/mL (0.000-0.034)
[2017-04-10] MEDS ORDERED: PANTOPRAZOLE 40 MG TABLET PO SCH (07:30)
[2017-04-10] MEDS ORDERED: ASPIRIN 325 MG TAB PO SCH (09:00)
[2017-04-10] MEDS ORDERED: METOPROLOL TARTRATE 12.5 MG TAB PO SCH (09:15)
[2017-04-10 09:55] VITALS: BP 144/74; PULSE 70; RESP 18
--- NOTE | 2017-04-10 13:41 | P.CRDCN ---
History of Present Illness Consult date: 04/10/17 History of present illness: This is a 62-year-old female who follows with Dr. Biggs as an outpatient. 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 She saw Dr. Biggs in the office March 19 of this year as a follow-up from recent hospitalization. Her most recent echocardiogram shows maintained left ventricular function with an ejection fraction of 55%, mild to moderate mitral regurgitation, mild tricuspid regurgitation, with a chronic stable abnormality and left ventricle. She presented to the emergency department with complaints of chest pain and shortness of breath. She states this first started on Sunday while she was standing in the kitchen eating a salad. She had an acute onset of midsternal chest heaviness associated with extreme shortness of breath with radiation down both arms and into the fingers. She complains of cramping bilateral upper legs. This episode resolved on its own after sitting down drinking glass of water. The entire episode lasted approximately 3-5 minutes. She states she was okay for the rest of the day and then woke up Sunday morning and had a similar episode. She was supposed to have a Lexiscan Dr. Biggs's office yesterday which was rescheduled for April 16. EKG shows normal sinus mechanism with nonspecific T-wave abnormalities, no change from previous EKG. CTA shows no evidence of pulmonary embolism. Cardiomegaly. Bilateral interstitial infiltrates compared to old exam. Troponins are negative 3. D-dimer 0.17. Blood pressure 144/74 with a heart rate is 70. Review of Systems REVIEW OF SYSTEMS: No diaphoresis. He denies headache, dizziness, blurred vision , double vision. No dyspnea on exertion. Patient denies any stomach discomfort. No nausea, vomiting. No hematochezia. No hematemesis. Denies any black stools or blood in his stools. No syncope. No palpitations. No cough. No recent fever or chills. Denies dysuria or hematuria. No muscle weakness or numbness. Past Medical History Past Medical History: Deep Vein Thrombosis (DVT), GERD/Reflux, Pulmonary Embolus (PE) Additional Past Medical History / Comment(s): MTHFR "coke bottle" L leg, factor 5, beginning macular degeneration bilat, sinus problems. History of Any Multi-Drug Resistant Organisms: None Reported Past Surgical History: Appendectomy, Cholecystectomy, Hysterectomy, Orthopedic Surgery Additional Past Surgical History / Comment(s): [place] filter, L achilles tendon repair, left leg stents 3 or 4, R rotator cuff repair, bilateral knee arthroscopies, 2012 ccath normal, GABI, bronchoscopy. Past Anesthesia/Blood Transfusion Reactions: No Reported Reaction, Motion Sickness Additional Past Anesthesia/Blood Transfusion Reaction / Comment(s): Pt has clausterphobia Past Psychological History: No Psychological Hx Reported Smoking Status: Never smoker Past Alcohol Use History: None Reported Past Drug Use History: None Reported - Past Family History Father Family Medical History: Cancer Additional Family Medical History / Comment(s): Father had bladder cancer and lung cancer. Mother Family Medical History: Cancer, Deep Vein Thrombosis (DVT) Additional Family Medical History / Comment(s): Mother of ovarian cancer, Medications and Allergies Home Medications Medication Instructions Recorded Confirmed Type Furosemide [Lasix] 40 mg PO DAILY PRN 10/14/15 04/09/17 History Omeprazole [PriLOSEC] 20 mg PO BID 10/14/15 04/09/17 History Acetaminophen [Tylenol] 1,000 mg PO QID PRN 02/03/17 04/09/17 History Ergocalciferol (Vitamin D2) 50,000 unit PO SA 02/03/17 04/09/17 History [Vitamin D2] Meloxicam [Mobic] 7.5 mg PO BID 02/03/17 04/09/17 History Oxybutynin Chloride [Ditropan] 5 mg PO BID 02/03/17 04/09/17 History Potassium Chloride ER [K-Dur 10] 10 meq PO HS 04/09/17 04/09/17 History Allergies Allergy/AdvReac Type Severity Reaction Status Date / Time adhesive Allergy Rash/Hives Verified 04/09/17 18:44 codeine Allergy Rash/Hives Verified 04/09/17 18:44 egg Allergy Nausea & Verified 04/09/17 18:44 Vomiting & Diarrhea hydrocodone bitartrate Allergy Rash/Hives Verified 04/09/17 18:44 [From [place]] Physical Exam Vitals: Vital Signs Temp Pulse Resp BP Pulse Ox 04/10/17 06:23 97.9 F 78 17 122/58 97 04/10/17 01:15 85 16 114/67 96 04/09/17 22:36 81 17 118/65 94 L 04/09/17 19:31 81 16 125/75 97 04/09/17 17:03 97.4 F L 69 18 133/82 98 Intake and Output 04/09/17 04/10/17 04/10/17 22:59 06:59 14:59 Other: Weight 107.048 kg GENERAL: This is a 62-year-old female in no apparent distress at the time of my examination. HEENT: Head is atraumatic, normocephalic. Pupils are equal, round. Sclerae anicteric. Conjunctivae are clear. Mucous membranes of the mouth are moist. Neck is supple. There is no jugular venous distention. No carotid bruit is heard. LUNGS: Clear to auscultation and precussion. No chest wall tenderness is noted on palpation or with deep breathing. HEART: Regular rate and rhythm without murmurs, rubs or gallops. S1 and S2 heard. ABDOMEN: Soft, nontender. Bowel sounds are heard. No organomegaly noted. EXTREMITIES: 2+ peripheral pulses with circumferential nonpitting edema to the right lower extremity, dark skin around the left lower extremity patient states this is chronic. No calf tenderness noted. NEUROLOGIC: Patient is awake, alert and oriented x3. Results 04/09/17 17:50 04/09/17 17:50 Cardiac Enzymes 04/09/17 04/09/17 04/10/17 Range/Units 17:50 17:50 00:07 AST 26 (14-36) U/L CK-MB (CK-2) 2.4 1.7 (0.0-2.4) ng/mL Troponin I <0.012 <0.012 (0.000-0.034) ng/mL 04/10/17 Range/Units 05:14 AST (14-36) U/L CK-MB (CK-2) 1.4 (0.0-2.4) ng/mL Troponin I <0.012 (0.000-0.034) ng/mL Coagulation 04/09/17 Range/Units 17:50 PT 11.3 (9.0-12.0) sec APTT 24.1 (22.0-30.0) sec Lipids 04/10/17 Range/Units 05:14 Triglycerides 275 H (<150) mg/dL Cholesterol 200 H (<200) mg/dL HDL Cholesterol 40 (40-60) mg/dL CBC 04/09/17 Range/Units 17:50 WBC 4.3 (3.8-10.6) k/uL RBC 4.22 (3.80-5.40) m/uL Hgb 13.3 (11.4-16.0) gm/dL Hct 38.4 (34.0-46.0) % Plt Count 207 (150-450) k/uL Comprehensive Metabolic Panel 04/09/17 Range/Units 17:50 Sodium 139 (137-145) mmol/L Potassium 3.9 (3.5-5.1) mmol/L Chloride 108 H (98-107) mmol/L Carbon Dioxide 21 L (22-30) mmol/L BUN 12 (7-17) mg/dL Creatinine 0.78 (0.52-1.04) mg/dL Glucose 117 H (74-99) mg/dL Calcium 9.0 (8.4-10.2) mg/dL AST 26 (14-36) U/L ALT 48 (9-52) U/L Alkaline Phosphatase 71 (38-126) U/L Total Protein 7.1 (6.3-8.2) g/dL Albumin 4.1 (3.5-5.0) g/dL Current Medications Generic Name Dose Route Start Last Admin Trade Name Freq PRN Reason Stop Dose Admin Acetaminophen 1,000 mg 04/09/17 20:11 04/10/17 04:18 Tylenol Tab PO 1,000 mg QID PRN Administration Pain Aspirin 325 mg 04/10/17 09:00 Aspirin PO DAILY PETRONA Enoxaparin Sodium 100 mg 04/09/17 21:00 04/09/17 22:26 Lovenox SQ 100 mg Q12HR PETRONA Administration Ergocalciferol 50,000 unit 04/14/17 09:00 Vitamin D2 PO SA PETRONA Furosemide 40 mg 04/09/17 20:11 Lasix PO DAILY PRN Edema Meloxicam 7.5 mg 04/09/17 21:00 04/09/17 23:24 Mobic PO 7.5 mg BID PETRONA Administration Metoprolol Tartrate 12.5 mg 04/10/17 09:15 Lopressor PO DAILY PETRONA Miscellaneous Information 1 each 04/09/17 17:33 04/09/17 17:55 Rx Info: Iv Contrast Was Given MISCELLANE 04/11/17 17:33 1 each DAILY PRN Administration Per Protocol Nitroglycerin 1 inch 04/10/17 00:00 04/10/17 01:27 Nitro-Bid Oint TOPICAL 1 inch Q6HR PETRONA Administration Nitroglycerin 0.4 mg 04/09/17 20:07 Nitrostat SUBLINGUAL Q5M PRN Chest Pain Oxybutynin Chloride 5 mg 04/09/17 21:00 04/09/17 22:27 Ditropan PO 5 mg BID PETRONA Administration Pantoprazole Sodium 40 mg 04/10/17 07:30 Protonix PO AC-BRKFST PETRONA Potassium Chloride 10 meq 04/09/17 21:00 04/09/17 22:27 K-Dur 10 PO 10 meq HS PETRONA Administration Trazodone HCl 150 mg 04/09/17 21:00 04/09/17 22:28 Desyrel PO 150 mg HS PETRONA Administration Intake and Output 04/09/17 04/10/17 04/10/17 22:59 06:59 14:59 Other: Weight 107.048 kg 04/09/17 17:50 04/09/17 17:50 - Imaging and Cardiology Echo: report reviewed (Patient had recent echo as an outpatient in the office . Shows maintained left ventricular function with an ejection fraction of 55% with mild concentric hypertrophy. Mild to moderate mitral regurgitation. Trace aortic regurgitation. Mild tricuspid regurgitation.) - EKG Interpretation EKG: sinus rhythm (Nonspecific T wave abnormality), normal ST/T, no acute changes, not changed from: (02/04/2017) Assessment and Plan Plan: ASSESSMENT 1. Chest pain, atypical 2. Chronic left lower extremity obstructing DVT on Lovenox PLAN From a cardiac standpoint patient is stable for discharge home. She should keep her appointment for her Lexiscan at the office with Dr. Biggs for April 16. We will add a small dose of metoprolol 12.5 mg by mouth daily she should remain on this medication until she follows up with Dr. Biggs. This has been explained to the patient with verbalized understanding. Thank you for this consultation. Nurse Practitioner note has been reviewed, I agree with a documented findings and plan of care. Patient was seen and examined.
[2017-04-14] MEDS ORDERED: ERGOCALCIFEROL 50,000 UNIT CAP PO SCH (09:00)
== END 2017-04-10 10:32 | disposition home or self-care (01) ==
LOC: EC 16:57 → 3OBS 20:05
PROVIDERS: ADMIT Family Medicine; ATTEND Family Medicine
DX: R07.89 Other chest pain (principal); R06.02 Shortness of breath; I82.502 Chronic embolism and thrombosis of unspecified deep veins of left lower extremity; I73.9 Peripheral vascular disease, unspecified; K21.9 Gastro-esophageal reflux disease without esophagitis; E72.12 Methylenetetrahydrofolate reductase deficiency; D68.51 Activated protein C resistance; F40.240 Claustrophobia; D68.59 Other primary thrombophilia; Z88.5 Allergy status to narcotic agent; Z91.012 Allergy to eggs; Z91.048 Other nonmedicinal substance allergy status; Z86.711 Personal history of pulmonary embolism; Z95.828 Presence of other vascular implants and grafts; Z79.1 Long term (current) use of non-steroidal anti-inflammatories (NSAID); Z79.01 Long term (current) use of anticoagulants; Z79.899 Other long term (current) drug therapy; Z80.52 Family history of malignant neoplasm of bladder; Z80.1 Family history of malignant neoplasm of trachea, bronchus and lung; Z80.41 Family history of malignant neoplasm of ovary
CPT/HCPCS: 99285; 96374; 96375 ×3; 96372; 36415; 93005; 85379; 80061; 80053; 82550 ×2; 82553 ×2; 83735; 84484 ×2; 85025; 85610; 85730; 87040; 93970; 71275; G0378 ×2; J2765; Q9967; J1650; J2270; J1170

== ENCOUNTER → 2017-12-18 | Outpatient (CLI) | payer OTHER ==
--- NOTE | 2017-12-18 14:41 | BD ---
EXAMINATION TYPE: MG DEXA axial skeleton. DATE OF EXAM: 12/18/2017 CLINICAL HISTORY: Z78.0 Post menopausal w/o HRT,N95.1 Postmenopausal Height: 67 inches Weight: 228 FRAX RISK QUESTIONS: Alcohol (3 or more units per day): no Family History (Parent hip fracture): no Glucocorticoids (More than 3mos): not recently...from time to time as needed (Ex: prednisone, prednisolone, methylprednisolone, dexamethasone, and hydrocortisone). History of Fracture in Adulthood: clavicle Secondary Osteoporosis: 1. Type 1 Diabetes: no 2. Hyperthyroidism: no 3. Menopause before 45: hysterectomy age 31 4. Malnutrition: no 5. Chronic liver disease: no Rheumatoid Arthritis: YES Current Tobacco Use: no RISK FACTORS HISTORY OF: Family History of Osteoporosis: no Active: yes Diet low in dairy products/other sources of calcium: no Postmenopausal woman: yes Take estrogen and/or progesterone medications: not now How long: hormonal contraceptives about 4 years; estrogen about 3 years starting age 31 Lost more than 2 inches in height since high school: no Frequent falls: no Poor Health: slightly Hyperparathyroidism: no Adrenal Insufficiency: no MEDICATIONS: Prednisone or other steroids: infrequently, as needed How Long: several years Osteoporosis Medications: no Additional Medications: lovnox injections twice a day Additional History: blood clotting disorder EXAM MEASUREMENTS: Bone mineral densitometry was performed using the [employer] System. Bone mineral density as measured about the Lumbar spine is: ----- L1-L4(G/cm2): 1.243 T Score Values are as follows: ----- L2: 0.3 ----- L3: 1.3 ----- L4: 0.2 ----- L1-L4: 0.5 Bone mineral density has: Decreased -0.5% since study of: 01/30/2011 Bone mineral density about the R hip (g/cm2): 1.103 Bone mineral density about the L hip (g/cm2): 1.021 T Score values are as follows: -----R Neck: 0.5 -----L Neck: -0.1 -----R Total: 1.4 -----L Total: 0.9 Bone mineral density has: Increased 1.0% since study of: 01/30/2011 IMPRESSION: No evidence for osteoporosis or osteopenia. NOTE: T-SCORE=SD OF THE YOUNG ADULT MEAN.
== END | disposition home or self-care (01) ==
LOC: RADBDWWP 08:41
PROVIDERS: ATTEND Internal Medicine Hematology & Oncology
DX: N95.1 Menopausal and female climacteric states (principal)
CPT/HCPCS: 77080

== ENCOUNTER → 2019-02-06 | Outpatient (CLI) | payer OTHER ==
--- NOTE | 2019-02-06 15:04 | XR ---
Lumbosacral spine HISTORY: Radiculopathy, back pain 5 views of the lumbosacral spine There is a mild levoscoliosis centered at L2. Multilevel spondylosis is present. No evident spondylol ysis or spondylolisthesis. Loss of disc height is present at intervertebral levels especially L1-2, L 2-3, L3-4 greater than L5-S1. Sclerosis present in the posterior elements of the lower lumbar spine. Inferior vena cava filter appears tilted. Surgical clips are present in the right upper quadrant. IMPRESSION: Degenerative disc disease, facet arthropathy and spinal curvature. There is a tilt to the inferior vena cava filter shows the nose of the filter at L1-2. No fracture or subluxation.
--- NOTE | 2019-02-06 15:05 | XR ---
Right knee HISTORY: Right knee pain 3 views of the right knee Marginal spurring is present tricompartmentally. Alignment and bone mineralization are maintained. Mi ld joint space loss is also present especially at the patellofemoral joint. No evident joint effusion . IMPRESSION: Osteoarthritis.
== END | disposition home or self-care (01) ==
LOC: RADXRMAIN 14:24
PROVIDERS: ATTEND Family Medicine
DX: M51.16 Intervertebral disc disorders with radiculopathy, lumbar region (principal); M46.96 Unspecified inflammatory spondylopathy, lumbar region; M17.11 Unilateral primary osteoarthritis, right knee
CPT/HCPCS: 72110

== ENCOUNTER → 2019-04-24 | Outpatient (CLI) | payer OTHER ==
--- NOTE | 2019-04-24 11:39 | XR ---
EXAMINATION TYPE: XR chest 2V DATE OF EXAM: 04/24/2019 COMPARISON: NONE TECHNIQUE: PA and lateral views submitted. HISTORY: Cough and shortness of breath FINDINGS: The lungs are clear and there is no pneumothorax, pleural effusion, or focal pneumonia. Postsurgica l change right shoulder and vertebral deformity involving the left clavicle suggestive of remote frac ture. No overt failure. IMPRESSION: 1. No acute process.
== END | disposition home or self-care (01) ==
LOC: RADXRMAIN 11:06
PROVIDERS: ATTEND Family Medicine
DX: J20.9 Acute bronchitis, unspecified (principal); J18.1 Lobar pneumonia, unspecified organism
CPT/HCPCS: 71046

== ENCOUNTER 2019-08-06 14:53 | Inpatient (IN) | payer OTHER ==
[2019-08-06] MEDS ORDERED: NITROGLYCERIN OINT 1 INCH/GM PACKET TOPICAL STA (15:02)
[2019-08-06] MEDS ORDERED: HYDROmorphone 0.5 MG/0.5 ML SYRINGE IVP STA ×2 (15:02→18:32)
[2019-08-06] MEDS ORDERED: ASPIRIN 81 MG PO STA (15:02)
--- NOTE | 2019-08-06 15:11 | ED ---
General Adult HPI - General Chief complaint: Chest Pain Stated complaint: SOB Time Seen by Provider: 08/06/19 14:55 Source: patient, RN notes reviewed, old records reviewed Mode of arrival: ambulatory Limitations: no limitations - History of Present Illness Initial comments: This is a 64-year-old female with a past medical history significant for pulmon lesvia embolisms for which she is on Lovenox. Patient states she has no history of heart problems diabetes hypertension high cholesterol and denies any history of any breathing problems. Patient comes to the emergency department because this morning at 8:00 she was having right-sided chest pain which she states feels like someone pressing on her chest and it radiates to her right shoulder she also indicates that taking a deep breath makes it worse as well. Patient states she is short of breath. Patient denies any diaphoretic episodes. Patient denies any nausea. Patient has any abdominal pain. Patient denies any palpitations. Patient denies any recent fever chills or cough. Patient states she thought it would go away so she didn't come in immediately but it only got a little worse so she decided come in and be evaluated. Patient denies any new calf pain or swelling to the legs. - Related Data Home Medications Medication Instructions Recorded Confirmed Furosemide [Lasix] 40 mg PO DAILY PRN 10/14/15 04/09/17 Omeprazole [PriLOSEC] 20 mg PO BID 10/14/15 04/09/17 Acetaminophen [Tylenol] 1,000 mg PO QID PRN 02/03/17 04/09/17 Ergocalciferol (Vitamin D2) 50,000 unit PO SA 02/03/17 04/09/17 [Vitamin D2] Meloxicam [Mobic] 7.5 mg PO BID 02/03/17 04/09/17 Oxybutynin Chloride [Ditropan] 5 mg PO BID 02/03/17 04/09/17 Potassium Chloride ER [K-Dur 10] 10 meq PO HS 04/09/17 04/09/17 Previous Rx's Medication Instructions Recorded traZODone HCL 150 mg PO HS #0 10/19/15 Enoxaparin [Lovenox] 100 mg SQ Q12HR #60 units 02/05/17 Metoprolol Tartrate [Lopressor] 12.5 mg PO DAILY #30 tab 08/15/17 Allergies Allergy/AdvReac Type Severity Reaction Status Date / Time adhesive Allergy Rash/Hives Verified 04/09/17 18:44 codeine Allergy Rash/Hives Verified 04/09/17 18:44 egg Allergy Nausea & Verified 04/09/17 18:44 Vomiting & Diarrhea hydrocodone bitartrate Allergy Rash/Hives Verified 04/09/17 18:44 [From [place]] Review of Systems ROS Statement: Those systems with pertinent positive or pertinent negative responses have been documented in the HPI. ROS Other: All systems not noted in ROS Statement are negative. Past Medical History Past Medical History: Deep Vein Thrombosis (DVT), GERD/Reflux, Pulmonary Embolus (PE) Additional Past Medical History / Comment(s): MTHFR "coke bottle" L leg, factor 5, beginning macular degeneration bilat, sinus problems. History of Any Multi-Drug Resistant Organisms: None Reported Past Surgical History: Appendectomy, Cholecystectomy, Hysterectomy, Orthopedic Surgery Additional Past Surgical History / Comment(s): [place] filter, L achilles tendon repair, left leg stents 3 or 4, R rotator cuff repair, bilateral knee arthroscopies, 2012 ccath normal, GABI, bronchoscopy. Past Anesthesia/Blood Transfusion Reactions: No Reported Reaction, Motion Sickness Additional Past Anesthesia/Blood Transfusion Reaction / Comment(s): Pt has clausterphobia Past Psychological History: No Psychological Hx Reported Smoking Status: Never smoker Past Alcohol Use History: None Reported Past Drug Use History: None Reported - Past Family History Father Family Medical History: Cancer Additional Family Medical History / Comment(s): Father had bladder cancer and lung cancer. Mother Family Medical History: Cancer, Deep Vein Thrombosis (DVT) Additional Family Medical History / Comment(s): Mother of ovarian cancer, General Exam - General Exam Comments Initial Comments: GENERAL: Patient is well-developed and well-nourished. Patient is nontoxic and well- hydrated and is in mild distress. ENT: Neck is soft and supple. No significant lymphadenopathy is noted. Oropharynx is clear. Moist mucous membranes. Neck has full range of motion without eliciting any pain. EYES: The sclera were anicteric and conjunctiva were pink and moist. Extraocular movements were intact and pupils were equal round and reactive to light. Eyelids were unremarkable. PULMONARY: Unlabored respirations. Good breath sounds bilaterally. No audible rales rhonchi or wheezing was noted. CARDIOVASCULAR: There is a regular rate and rhythm without any murmurs gallops or rubs. ABDOMEN: Soft and nontender with normal bowel sounds. SKIN: Skin is clear with no lesions or rashes and otherwise unremarkable. NEUROLOGIC: Patient is alert and oriented x3. Cranial nerves II through XII are grossly intact. Motor and sensory are also intact. Normal speech, volume and content. Symmetrical smile. MUSCULOSKELETAL: Normal extremities with adequate strength and full range of motion. Left leg has chronic skin changes secondary to peripheral vascular disease LYMPHATICS: No significant lymphadenopathy is noted PSYCHIATRIC: Normal psychiatric evaluation. Limitations: no limitations Course Vital Signs 08/06/19 08/06/19 14:54 16:30 Temperature 98.9 F Pulse Rate 76 78 Respiratory 21 20 Rate Blood Pressure 169/77 116/67 O2 Sat by Pulse 99 95 Oximetry Medical Decision Making - Medical Decision Making EKG shows normal sinus rhythm at 66 bpm PA interval is 124 QRS is 96 QT interval 398 QTC is 417. Patient's EKG shows no ST segment elevation or depression or T wave abnormalities Chest x-ray shows no acute normalities. D-dimer was elevated so I did a CT rule out PE. Patient has a pulmonary embolus in the right lower lung. Started the patient on high-dose heparin for spoke with Dr. Montes and admitted the patient to Dr. chavarria I continued heparin on the floor. I consult to Dr. Montes - Lab Data Result diagrams: 08/06/19 15:04 08/06/19 15:04 Lab Results 08/06/19 08/06/19 08/06/19 Range/Units 15:04 15:04 15:04 WBC 8.0 (3.8-10.6) k/uL RBC 4.63 (3.80-5.40) m/uL Hgb 14.1 (11.4-16.0) gm/dL Hct 41.2 (34.0-46.0) % MCV 89.0 (80.0-100.0) fL MCH 30.4 (25.0-35.0) pg MCHC 34.2 (31.0-37.0) g/dL RDW 13.1 (11.5-15.5) % Plt Count 179 (150-450) k/uL Neutrophils % (Manual) 79 % Band Neutrophils % 2 % Lymphocytes % (Manual) 16 % Monocytes % (Manual) 1 % Eosinophils % (Manual) 2 % Neutrophils # (Manual) 6.40 (1.3-7.7) k/uL Lymphocytes # (Manual) 1.28 (1.0-4.8) k/uL Monocytes # (Manual) 0.08 (0-1.0) k/uL Eosinophils # (Manual) 0.16 (0-0.7) k/uL Nucleated RBCs 0 (0-0) /100 WBC Manual Slide Review Performed Poikilocytosis (manual Present PT 11.4 (9.0-12.0) sec INR 1.1 (<1.2) APTT 27.1 (22.0-30.0) sec D-Dimer 6.52 H (<0.60) mg/L FEU Sodium 139 (137-145) mmol/L Potassium 4.7 (3.5-5.1) mmol/L Chloride 103 (98-107) mmol/L Carbon Dioxide 27 (22-30) mmol/L Anion Gap 9 mmol/L BUN 12 (7-17) mg/dL Creatinine 0.76 (0.52-1.04) mg/dL Est GFR (CKD-EPI)AfAm >90 (>60 ml/min/1.73 sqM) Est GFR (CKD-EPI)NonAf 84 (>60 ml/min/1.73 sqM) Glucose 108 H (74-99) mg/dL Calcium 9.9 (8.4-10.2) mg/dL Magnesium 1.9 (1.6-2.3) mg/dL Total Bilirubin 0.5 (0.2-1.3) mg/dL AST 24 (14-36) U/L ALT 18 (9-52) U/L Alkaline Phosphatase 76 (38-126) U/L Troponin I (0.000-0.034) ng/mL NT-Pro-B Natriuret Pep pg/mL Total Protein 7.9 (6.3-8.2) g/dL Albumin 4.5 (3.5-5.0) g/dL 08/06/19 08/06/19 Range/Units 15:04 15:04 WBC (3.8-10.6) k/uL RBC (3.80-5.40) m/uL Hgb (11.4-16.0) gm/dL Hct (34.0-46.0) % MCV (80.0-100.0) fL MCH (25.0-35.0) pg MCHC (31.0-37.0) g/dL RDW (11.5-15.5) % Plt Count (150-450) k/uL Neutrophils % (Manual) % Band Neutrophils % % Lymphocytes % (Manual) % Monocytes % (Manual) % Eosinophils % (Manual) % Neutrophils # (Manual) (1.3-7.7) k/uL Lymphocytes # (Manual) (1.0-4.8) k/uL Monocytes # (Manual) (0-1.0) k/uL Eosinophils # (Manual) (0-0.7) k/uL Nucleated RBCs (0-0) /100 WBC Manual Slide Review Poikilocytosis (manual PT (9.0-12.0) sec INR (<1.2) APTT (22.0-30.0) sec D-Dimer (<0.60) mg/L FEU Sodium (137-145) mmol/L Potassium (3.5-5.1) mmol/L Chloride (98-107) mmol/L Carbon Dioxide (22-30) mmol/L Anion Gap mmol/L BUN (7-17) mg/dL Creatinine (0.52-1.04) mg/dL Est GFR (CKD-EPI)AfAm (>60 ml/min/1.73 sqM) Est GFR (CKD-EPI)NonAf (>60 ml/min/1.73 sqM) Glucose (74-99) mg/dL Calcium (8.4-10.2) mg/dL Magnesium (1.6-2.3) mg/dL Total Bilirubin (0.2-1.3) mg/dL AST (14-36) U/L ALT (9-52) U/L Alkaline Phosphatase (38-126) U/L Troponin I <0.012 (0.000-0.034) ng/mL NT-Pro-B Natriuret Pep 139 pg/mL Total Protein (6.3-8.2) g/dL Albumin (3.5-5.0) g/dL Disposition Clinical Impression: Pulmonary embolus Disposition: ADMITTED IP TO THIS HOSP Referrals: Luis Manuel Chavarria MD [Primary Care Provider] - 1-2 days Time of Disposition: 17:30
[2019-08-06] MEDS ORDERED: KETOROLAC 30 MG/ML 1 ML VIAL IVP STA (15:17)
[2019-08-06 15:28] LABS: ALT 18 U/L (9-52); AST 24 U/L (14-36); African American GFR (CKD) >90 (>60 ml/min/1.73 sqM); Albumin 4.5 g/dL (3.5-5.0); Alkaline Phosphatase 76 U/L (38-126); Anion Gap 9 mmol/L; Blood Urea Nitrogen 12 mg/dL (7-17); Calcium 9.9 mg/dL (8.4-10.2); Carbon Dioxide 27 mmol/L (22-30); Chloride 103 mmol/L (98-107); Glucose 108 mg/dL (74-99); Magnesium 1.9 mg/dL (1.6-2.3); Non-African American GFR(CKD) 84 (>60 ml/min/1.73 sqM); Potassium 4.7 mmol/L (3.5-5.1); Sodium 139 mmol/L (137-145); Total Bilirubin 0.5 mg/dL (0.2-1.3); Total Protein 7.9 g/dL (6.3-8.2)
[2019-08-06 15:38] LABS: HCT 41.2 % (34.0-46.0); HGB 14.1 gm/dL (11.4-16.0); MCH 30.4 pg (25.0-35.0); MCHC 34.2 g/dL (31.0-37.0); Platelet Count 179 k/uL (150-450); RBC 4.63 m/uL (3.80-5.40); RDW 13.1 % (11.5-15.5)
[2019-08-06 15:54] LABS: INR 1.1 (<1.2); Partial Thromboplastin Time 27.1 sec (22.0-30.0); Prothrombin Time 11.4 sec (9.0-12.0)
--- NOTE | 2019-08-06 15:54 | XR ---
EXAMINATION TYPE: XR chest 2V DATE OF EXAM: 08/06/2019 COMPARISON: 04/15/1918 HISTORY: Chest pain TECHNIQUE: Frontal and lateral views of the chest are obtained. FINDINGS: There is no focal air space opacity, pleural effusion, or pneumothorax seen. Minimal atele ctasis near the costophrenic angle is seen and left lower lung platelike atelectasis. The cardiac john houette size is upper limits of normal. The osseous structures are intact. Partial visualization of an inferior vena cava filter IMPRESSION: Minimal right bibasilar atelectasis, otherwise no acute cardiopulmonary process.
[2019-08-06 15:55] LABS: Band Neutrophils % 2 %; Eosinophils # (M) 0.16 k/uL (0-0.7); Lymphocytes # (M) 1.28 k/uL (1.0-4.8); Monocytes # (M) 0.08 k/uL (0-1.0); Neutrophils % (M) 79 %; Nucleated Red Blood Cells 0 /100 WBC (0-0); Total Cells Counted 100
[2019-08-06 15:57] LABS: Poikilocytosis (M) Present
[2019-08-06 15:59] LABS: D-Dimer 6.52 mg/L FEU (<0.60)
[2019-08-06] MEDS ORDERED: HYDROmorphone 1 MG/ML 1 ML SYRINGE IVP STA (17:15)
[2019-08-06] MEDS ORDERED: HEPARIN SODIUM,PORCINE 10,000 UNIT/ML 1 ML VIAL IV ONE (17:16)
--- NOTE | 2019-08-06 17:24 | CT ---
EXAMINATION TYPE: CT chest angio for PE DATE OF EXAM: 08/06/2019 COMPARISON: 02/03/2017 HISTORY: Right sided chest pain and dyspnea. CT DLP: 514 mGycm Automated exposure control for dose reduction was used. CONTRAST: CT Chest for pulmonary embolism performed with with IV Contrast, patient injected with 100 mL of Isov ue 370. FINDINGS: LUNGS: Areas of subsegmental consolidation involving both lungs suggestive of atelectasis. 3 mm nodul e right middle lobe image 78 2 small to characterize. No pneumothorax. Small right pleural effusion. MEDIASTINUM: There are filling defects within the secondary and distal branches of the right pulmonar y artery lower lobe compatible with acute pulmonary embolism. The right ventricle the left ventricula r ratio is less than 1. No pathologic adenopathy. OTHER: Hypertrophic change of the spine noted. There is a mass within the left lobe of the liver pradeep suring 2.9 cm IMPRESSION: 1. Findings compatible with acute pulmonary embolism involving the secondary and distal branches exte nding into the right lower lobe. Subsegmental areas of consolidation are more likely related to atele ctasis than pulmonary infarction correlate clinically. 2. There is a 3 mm right middle lobe pulmonary nodule too small to characterize 6 month follow-up rec ommended. 3. There is a 2.9 cm mass left lobe of the liver not clearly seen on the prior exam. Recommend follow -up ultrasound to assess for solid or cystic lesion.
[2019-08-06] MEDS ORDERED: SODIUM CHLORIDE 0.9% 1,000 ML IV ONE (17:30)
[2019-08-06] MEDS: HEPARIN SOD,PORK IN 0.45% NACL 25,000 UNIT in 0.45% NACL 1 250ML.BAG IV SCH (17:32)
[2019-08-06] MEDS ORDERED: HYDROmorphone 1 MG/ML 1 ML SYRINGE IVP PRN (17:48)
[2019-08-07] MEDS: KETOROLAC 30 MG/ML 1 ML VIAL IVP PRN ×2 (00:16→07:03)
[2019-08-07 01:00] LABS: Glucose,Whole Blood 122 mg/dL (75-99)
[2019-08-07] MEDS: HYDROmorphone 1 MG/ML 1 ML SYRINGE IVP PRN ×7 (01:28→21:50)
[2019-08-07] MEDS: diphenhydrAMINE 25 MG CAP PO PRN ×2 (01:29→20:34)
[2019-08-07 01:52] LABS: INR 1.3 (<1.2); Prothrombin Time 13.3 sec (9.0-12.0)
[2019-08-07 06:21] LABS: Basophils % (A) 0 %; Eosinophils # (A) 0.1 k/uL (0-0.7); Eosinophils % (A) 2 %; HGB 12.3 gm/dL (11.4-16.0); Lymphocytes % (A) 27 %; MCHC 34.2 g/dL (31.0-37.0); MCV 90.7 fL (80.0-100.0); Monocytes # (A) 0.8 k/uL (0-1.0); Monocytes % (A) 11 %; Neutrophils # (A) 4.1 k/uL (1.3-7.7); Neutrophils % (A) 54 %; Platelet Count 162 k/uL (150-450); RBC 3.96 m/uL (3.80-5.40); RDW 13.3 % (11.5-15.5); WBC 7.5 k/uL (3.8-10.6)
[2019-08-07 07:14] LABS: African American GFR (CKD) >90 (>60 ml/min/1.73 sqM); Anion Gap 8 mmol/L; Blood Urea Nitrogen 11 mg/dL (7-17); Calcium 8.5 mg/dL (8.4-10.2); Carbon Dioxide 24 mmol/L (22-30); Chloride 106 mmol/L (98-107); Glucose 104 mg/dL (74-99); Non-African American GFR(CKD) >90 (>60 ml/min/1.73 sqM); Potassium 3.8 mmol/L (3.5-5.1); Sodium 138 mmol/L (137-145)
[2019-08-07] MEDS ORDERED: FUROSEMIDE 40 MG TAB PO PRN (09:09)
[2019-08-07] MEDS ORDERED: IPRATROPIUM-ALBUTEROL 3 ML NEB INHALATION PRN (09:09)
[2019-08-07] MEDS ORDERED: Potassium Replacement Protocol 1 EACH MISC MISCELLANE PRN (09:11)
[2019-08-07] MEDS ORDERED: ONDANSETRON 4 MG/2 ML VIAL IVP PRN (09:13)
[2019-08-07] MEDS: ACETAMINOPHEN TAB 500 MG TAB PO PRN ×2 (09:51→20:33)
[2019-08-07] MEDS: HEPARIN SOD,PORK IN 0.45% NACL 25,000 UNIT in 0.45% NACL 1 250ML.BAG IV SCH (09:51)
[2019-08-07] MEDS: PANTOPRAZOLE 40 MG/10 ML VIAL IVP SCH (10:01)
--- NOTE | 2019-08-07 11:10 | P.CRDCN ---
History of Present Illness Consult date: 08/07/19 Requesting physician: Luis Manuel Roberts Reason for Consult (text): PE Chief complaint: Sudden onset of shortness of breath History of present illness: This is a 64-year-old female who follows with Dr. 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 Patient presented to the hospital with a sudden onset of shortness of breath with associated right-sided chest discomfort. It started in the morning, and progressively worsened through the day, so the patient came to the emergency room for further evaluation and treatment. Chest x-ray on presentation here showed minimal right basilar atelectasis otherwise no acute pulmonary process. CTA of the chest compatible with acute pulmonary embolism involving the secondary and distal branches extending into the right lower lobe. There is also a 3 mm right middle lobe pulmonary nodule noted and a 2.9 cm mass in the left lobe of the liver not clearly seen on prior exam. EKG shows normal sinus rhythm with nonspecific ST-T wave changes. Blood pressure 140/80 with heart rate in the 60s, 96% on 2 L of oxygen. White blood cell count 7.5, hemoglobin 12.3, platelet count 162. D-dimer 6.5, sodium 138, potassium 3.8, BUN 11, creatinine 0.7. Magnesium 1.9, troponins negative 3. Cholesterol 200, LDL 105, triglycerides 275, HDL 40. At the time of my examination in the intensive care unit this morning, patient still complains of some discomfort with deep breathing in the right chest area. Mildly short of breath. Currently on IV heparin Past Medical History Past Medical History: Deep Vein Thrombosis (DVT), GERD/Reflux, Pulmonary Embolus (PE) Additional Past Medical History / Comment(s): MTHFR "coke bottle" L leg, factor 5, beginning macular degeneration bilat, sinus problems. History of Any Multi-Drug Resistant Organisms: None Reported Past Surgical History: Appendectomy, Cholecystectomy, Hysterectomy, Orthopedic Surgery Additional Past Surgical History / Comment(s): [place] filter, L achilles t endon repair, left leg stents 3 or 4, R rotator cuff repair, bilateral knee arthroscopies, 2013 ccath normal, GABI, bronchoscopy. Past Anesthesia/Blood Transfusion Reactions: No Reported Reaction, Motion Sickness Additional Past Anesthesia/Blood Transfusion Reaction / Comment(s): Pt has clausterphobia Past Psychological History: No Psychological Hx Reported Additional Psychological History / Comment(s): Pt resides with her spouse. She uses no device (she does have a cane but choses not to use it at this point), she drives. She is the mother of 11 children and 8 grandchildren. 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 She drives. Smoking Status: Never smoker Past Alcohol Use History: None Reported Past Drug Use History: None Reported - Past Family History Father Family Medical History: Cancer Additional Family Medical History / Comment(s): Father had bladder cancer and lung cancer. Mother Family Medical History: Cancer, Deep Vein Thrombosis (DVT) Additional Family Medical History / Comment(s): Mother of ovarian cancer Sister(s) Family Medical History: Cancer Additional Family Medical History / Comment(s): Ovarian Cancer with metastasis to kidney with urostomy Medications and Allergies Home Medications Medication Instructions Recorded Confirmed Type Furosemide [Lasix] 40 mg PO DAILY PRN 10/14/15 08/06/19 History Omeprazole [PriLOSEC] 20 mg PO DAILY 10/14/15 08/06/19 History traZODone HCL 150 mg PO HS #0 10/19/15 08/06/19 Rx Acetaminophen [Tylenol] 500 mg PO Q6H PRN 02/03/17 08/06/19 History Ergocalciferol (Vitamin D2) 50,000 unit PO SA 02/03/17 08/06/19 History [Vitamin D2] Oxybutynin Chloride [Ditropan] 5 mg PO HS 02/03/17 08/06/19 History Albuterol Inhaler [Ventolin Hfa 2 puff INHALATION RT-Q6H PRN 08/06/19 08/06/19 History Inhaler] Enoxaparin [Lovenox] 100 mg SQ BID 08/06/19 08/06/19 History Magnesium 400 mg PO HS 08/06/19 08/06/19 History Allergies Allergy/AdvReac Type Severity Reaction Status Date / Time adhesive Allergy Rash/Hives Verified 08/06/19 17:55 codeine Allergy Rash/Hives Verified 08/06/19 17:55 egg Allergy Nausea & Verified 08/06/19 17:55 Vomiting & Diarrhea hydrocodone bitartrate Allergy Rash/Hives Verified 08/06/19 17:55 [From [place]] Physical Exam Vitals: Vital Signs Temp Pulse Pulse Resp BP BP Pulse Ox 08/07/19 08:00 64 14 140/81 96 08/07/19 04:00 95.4 F L 70 13 140/81 98 08/07/19 00:00 71 109/63 96 08/06/19 23:30 81 109/63 08/06/19 23:00 66 108/66 95 08/06/19 22:30 74 116/63 08/06/19 22:00 81 116/63 08/06/19 21:54 76 18 127/73 96 08/06/19 21:30 76 112/80 08/06/19 21:00 77 19 130/76 97 08/06/19 20:30 80 118/88 08/06/19 20:00 77 18 127/75 96 08/06/19 19:30 86 124/76 08/06/19 19:00 75 130/78 08/06/19 18:30 98.3 F 73 20 118/70 96 08/06/19 18:10 98.3 F 66 15 129/74 96 08/06/19 18:00 76 18 108/73 96 08/06/19 17:30 73 20 119/69 95 08/06/19 16:30 78 20 116/67 95 08/06/19 14:54 98.9 F 76 21 169/77 99 Intake and Output 08/06/19 08/07/19 08/07/19 22:59 06:59 14:59 Intake Total 412.513 66.831 Output Total 0 Balance 412.513 66.831 Intake: Intake, IV Titration 312.513 66.831 Amount Heparin Sod,Pork in 0.45% 172.513 66.831 NaCl 25,000 unit In 0.45 % NaCl 1 250ml.bag @ 18 UNITS/KG/HR 17.309 mls/hr IV .[id number] [facility] Rx#: [id number] Sodium Chloride 0.9% 1, 140 000 ml @ 75 mls/hr IV . [id number] ONE Rx#:[id number] Oral 100 Output: Urine 0 Other: Voiding Method Bedside Commode Bedside Commode Weight 96.162 kg 98.1 kg YSICAL EXAMINATION: HEENT: Head is atraumatic, normocephalic. Pupils equal, round. Neck is supple. There is no elevated jugular venous pressure. HEART EXAMINATION: Heart S1, S2 normal. No murmur or gallop heard. CHEST EXAMINATION: Lungs are clear to auscultation and precussion. Positive right sided chest wall tenderness is noted with deep breathing. ABDOMEN: Soft, nontender. Bowel sounds are heard. No organomegaly noted. EXTREMITIES: 2+ peripheral pulses with no evidence of peripheral edema and no calf tenderness noted. NEUROLOGIC patient is awake, alert and oriented -3. Results 08/07/19 05:54 08/07/19 05:54 Cardiac Enzymes 08/06/19 08/06/19 Range/Units 15:04 15:04 AST 24 (14-36) U/L Troponin I <0.012 (0.000-0.034) ng/mL Coagulation 08/06/19 08/07/19 08/07/19 Range/Units 15:04 01:04 02:12 PT 11.4 13.3 H (9.0-12.0) sec APTT 27.1 156.8 H* (22.0-30.0) sec CBC 08/06/19 08/07/19 Range/Units 15:04 05:54 WBC 8.0 7.5 (3.8-10.6) k/uL RBC 4.63 3.96 (3.80-5.40) m/uL Hgb 14.1 12.3 (11.4-16.0) gm/dL Hct 41.2 36.0 (34.0-46.0) % Plt Count 179 162 (150-450) k/uL Comprehensive Metabolic Panel 08/06/19 08/07/19 Range/Units 15:04 05:54 Sodium 139 138 (137-145) mmol/L Potassium 4.7 3.8 (3.5-5.1) mmol/L Chloride 103 106 (98-107) mmol/L Carbon Dioxide 27 24 (22-30) mmol/L BUN 12 11 (7-17) mg/dL Creatinine 0.76 0.71 (0.52-1.04) mg/dL Glucose 108 H 104 H (74-99) mg/dL Calcium 9.9 8.5 (8.4-10.2) mg/dL AST 24 (14-36) U/L ALT 18 (9-52) U/L Alkaline Phosphatase 76 (38-126) U/L Total Protein 7.9 (6.3-8.2) g/dL Albumin 4.5 (3.5-5.0) g/dL Current Medications Generic Name Dose Route Start Last Admin Trade Name Freq PRN Reason Stop Dose Admin Acetaminophen 500 mg 08/07/19 09:09 08/07/19 09:51 Tylenol Tab PO 500 mg Q6H PRN Administration Pain Albuterol/Ipratropium 3 ml 08/07/19 12:00 Duoneb 0.5 Mg-3 Mg/3 Ml Soln INHALATION RT-QID [facility] Albuterol/Ipratropium 3 ml 08/07/19 09:09 Duoneb 0.5 Mg-3 Mg/3 Ml Soln INHALATION RT-Q2H PRN Shortness Of Breath Or Wheezing Diphenhydramine HCl 25 mg 08/07/19 00:30 08/07/19 01:29 Benadryl PO 25 mg HS PRN Administration Insomnia Ergocalciferol 50,000 unit 08/09/19 09:00 Vitamin D2 PO SA [facility] Furosemide 40 mg 08/07/19 09:09 Lasix PO DAILY PRN Edema Hydromorphone HCl 1.5 mg 08/07/19 10:36 Dilaudid IVP Q3HR PRN Pain Heparin Sodium/Sodium Chloride 250 mls @ 17.309 mls/hr 08/06/19 17:30 08/07/19 09:51 25,000 unit/ Sodium Chloride IV 15 units/kg/hr .[id number] [facility] 14.424 mls/hr Administration Protocol 18 UNITS/KG/HR Ketorolac Tromethamine 15 mg 08/07/19 00:05 08/07/19 07:03 Toradol IVP 08/11/19 00:05 15 mg Q6HR PRN Administration Breakthrough Pain Magnesium Oxide 400 mg 08/07/19 21:00 Mag-Ox PO HS [facility] Miscellaneous Information 1 each 08/07/19 09:11 Potassium Per Protocol MISCELLANE DAILY PRN Per Protocol Protocol Ondansetron HCl 4 mg 08/07/19 09:13 Zofran IVP Q6HR PRN Nausea And Vomiting Oxybutynin Chloride 5 mg 08/07/19 21:00 Ditropan PO HS [facility] Pantoprazole Sodium 40 mg 08/07/19 09:15 08/07/19 10:01 Protonix IVP Not Given DAILY [facility] Trazodone HCl 150 mg 08/07/19 21:00 Desyrel PO HS [facility] Intake and Output 08/06/19 08/07/19 08/07/19 22:59 06:59 14:59 Intake Total 412.513 66.831 Output Total 0 Balance 412.513 66.831 Intake: Intake, IV Titration 312.513 66.831 Amount Heparin Sod,Pork in 0.45% 172.513 66.831 NaCl 25,000 unit In 0.45 % NaCl 1 250ml.bag @ 18 UNITS/KG/HR 17.309 mls/hr IV .[id number] [facility] Rx#: [id number] Sodium Chloride 0.9% 1, 140 000 ml @ 75 mls/hr IV . [id number] [facility] Rx#:[id number] Oral 100 Output: Urine 0 Other: Voiding Method Bedside Commode Bedside Commode Weight 96.162 kg 98.1 kg 08/07/19 05:54 08/07/19 05:54 EKG Interpretations (text) EKG shows a normal sinus rhythm with nonspecific ST-T wave changes. Assessment and Plan Plan: Assessment and plan #1 symptoms of sudden onset of shortness of breath with right-sided chest pain, evidence of acute pulmonary embolism. #2 history of recurrent DVT of the lower extremity, #3 history of PE #4 factor V Leiden deficiency, MTHFR, follows with hematology as an outpatient. 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 DNP note has been reviewed, I agree with a documented findings and plan of care. Patient was seen and examined.
[2019-08-07] MEDS ORDERED: IPRATROPIUM-ALBUTEROL 3 ML NEB INHALATION SCH (12:00)
--- NOTE | 2019-08-07 12:11 | P.CONS ---
History of Present Illness - Reason for Consult Consult date: 08/07/19 Recurent DVT/PE on anticoagulation Requesting physician: America Guy - Chief Complaint chest pain - History of Present Illness Seema is a very pleasant 64-year-old female patient of Dr. Moran who has been following with him since prior to 2011. Patient has a history of recurrent PE/DVT, she has been on lifelong anticoagulation. She has chronic lower extremity swelling. She was initially on Coumadin, trialed on other anticoagulants, i.e. Xarelto-cause muscle aches, resumed Coumadin. 10/14/15 she had chest pain, INR was slightly subtherapeutic (1.8), was referred to have spiral CT scan of chest which confirmed new RML and RLL pulmonary emboli, had echocardiogram which was suspicious for cardiac thrombus, GABI confirmed cardiac thrombus. She was changed to lovenox. 02/15/17 hospitalized for chest pain, had acute on chronic DVT in the LLE, she was on a reduced dose of lovenox at that time. She was trialed on eliquis in early 2018 (due to cumulative effects of BID SQ injections) but, had side effects that were intolerable so, she resumed lovenox. She was last seen 07/15/2019, it was discussed changing the dose to 150 mg daily. Pt stated increasing sharp chest pain, associated with SOB, activity intolerance. She denied fevers, neurological symptoms, nausea, sweats. Review of Systems 14 point review of systems is negative except as stated in HPI Past Medical History Past Medical History: Blood Disorder, Deep Vein Thrombosis (DVT), GERD/Reflux, Pulmonary Embolus (PE) Additional Past Medical History / Comment(s): MTHFR "coke bottle" L leg, factor 5, beginning macular degeneration bilat, sinus problems. History of Any Multi-Drug Resistant Organisms: None Reported Past Surgical History: Appendectomy, Cholecystectomy, Hysterectomy, Orthopedic Surgery Additional Past Surgical History / Comment(s): Kaylyn filter, L achilles tendon repair, left leg stents 3 or 4, R rotator cuff repair, bilateral knee arthroscopies, 2012 ccath normal, GABI, bronchoscopy. Past Anesthesia/Blood Transfusion Reactions: No Reported Reaction, Motion Sickness Additional Past Anesthesia/Blood Transfusion Reaction / Comm: Pt has clausterphobia Past Psychological History: No Psychological Hx Reported Additional Psychological History / Comment(s): Pt resides with her spouse. She uses no device (she does have a cane but choses not to use it at this point), she drives. She is the mother of 11 children and 8 grandchildren. 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 She drives. Smoking Status: Never smoker Past Alcohol Use History: None Reported Past Drug Use History: None Reported - Past Family History Father Family Medical History: Cancer Additional Family Medical History / Comment(s): Father had bladder cancer and lung cancer. Mother Family Medical History: Cancer, Deep Vein Thrombosis (DVT) Additional Family Medical History / Comment(s): Mother of ovarian cancer Sister(s) Family Medical History: Cancer Additional Family Medical History / Comment(s): Ovarian Cancer with metastasis to kidney with urostomy Medications and Allergies Home Medications Medication Instructions Recorded Confirmed Type Furosemide [Lasix] 40 mg PO DAILY PRN 10/14/15 08/06/19 History Omeprazole [PriLOSEC] 20 mg PO DAILY 10/14/15 08/06/19 History traZODone HCL 150 mg PO HS #0 10/19/15 08/06/19 Rx Acetaminophen [Tylenol] 500 mg PO Q6H PRN 02/03/17 08/06/19 History Ergocalciferol (Vitamin D2) 50,000 unit PO SA 02/03/17 08/06/19 History [Vitamin D2] Oxybutynin Chloride [Ditropan] 5 mg PO HS 02/03/17 08/06/19 History Albuterol Inhaler [Ventolin Hfa 2 puff INHALATION RT-Q6H PRN 08/06/19 08/06/19 History Inhaler] Enoxaparin [Lovenox] 100 mg SQ BID 08/06/19 08/06/19 History Magnesium 400 mg PO HS 08/06/19 08/06/19 History Allergies Allergy/AdvReac Type Severity Reaction Status Date / Time adhesive Allergy Rash/Hives Verified 08/06/19 17:55 codeine Allergy Rash/Hives Verified 08/06/19 17:55 egg Allergy Nausea & Verified 08/06/19 17:55 Vomiting & Diarrhea hydrocodone bitartrate Allergy Rash/Hives Verified 08/06/19 17:55 [From [place]] Physical Exam Vitals: Vital Signs Temp Pulse Pulse Resp BP BP Pulse Ox 12/12/19 08:00 64 14 140/81 96 08/07/19 04:00 95.4 F L 70 13 140/81 98 08/07/19 00:00 71 109/63 96 08/06/19 23:30 81 109/63 08/06/19 23:00 66 108/66 95 08/06/19 22:30 74 116/63 08/06/19 22:00 81 116/63 08/06/19 21:54 76 18 127/73 96 08/06/19 21:30 76 112/80 08/06/19 21:00 77 19 130/76 97 08/06/19 20:30 80 118/88 08/06/19 20:00 77 18 127/75 96 08/06/19 19:30 86 124/76 08/06/19 19:00 75 130/78 08/06/19 18:30 98.3 F 73 20 118/70 96 08/06/19 18:10 98.3 F 66 15 129/74 96 08/06/19 18:00 76 18 108/73 96 08/06/19 17:30 73 20 119/69 95 08/06/19 16:30 78 20 116/67 95 08/06/19 14:54 98.9 F 76 21 169/77 99 Intake and Output 08/06/19 08/07/19 08/07/19 22:59 06:59 14:59 Intake Total 412.513 316.831 Output Total 0 Balance 412.513 316.831 Intake: Intake, IV Titration 312.513 66.831 Amount Heparin Sod,Pork in 0.45% 172.513 66.831 NaCl 25,000 unit In 0.45 % NaCl 1 250ml.bag @ 18 UNITS/KG/HR 17.309 mls/hr IV .[id number] [facility] Rx#: [id number] Sodium Chloride 0.9% 1, 140 000 ml @ 75 mls/hr IV . [id number] [facility] Rx#:[id number] Oral 100 250 Output: Urine 0 Other: Voiding Method Bedside Commode Bedside Commode # Voids 2 Weight 96.162 kg 98.1 kg - Constitutional General appearance: cooperative, no acute distress, obese - EENT Eyes: anicteric sclerae, EOMI ENT: hearing grossly normal, normal oropharynx - Neck Neck: no lymphadenopathy - Respiratory Respiratory: bilateral: CTA (restricted inspiration secondary to discomfort) - Cardiovascular Rhythm: regular Heart sounds: normal: S1, S2 Abnormal Heart Sounds: no systolic murmur, no diastolic murmur, no rub, no S3 Gallop, no S4 Gallop, no click, no other leg Peripheral Edema: bilateral: Trace - Gastrointestinal General gastrointestinal: no absent bowel sounds, no decreased bowel sounds, no distended, no hepatomegaly, no hyperactive bowel sounds, normal bowel sounds, no organomegaly, no rigid, no scaphoid, soft, no splenomegaly, no tenderness, no umbilical hernia, no ventral hernia - Integumentary Integumentary: normal - Neurologic Neurologic: CNII-XII intact - Musculoskeletal Musculoskeletal: strength equal bilaterally - Psychiatric Psychiatric: A&O x's 3, appropriate affect, intact judgment & insight Results CBC & Chem 7: 08/07/19 05:54 08/07/19 05:54 Labs: Abnormal Lab Results - Last 24 Hours (Table) 08/06/19 08/06/19 08/07/19 Range/Units 15:04 15:04 00:57 PT (9.0-12.0) sec INR (<1.2) APTT (22.0-30.0) sec D-Dimer 6.52 H (<0.60) mg/L FEU Glucose 108 H (74-99) mg/dL POC Glucose (mg/dL) 122 H (75-99) mg/dL 08/07/19 08/07/19 08/07/19 Range/Units 01:04 02:12 05:54 PT 13.3 H (9.0-12.0) sec INR 1.3 H (<1.2) APTT 156.8 H* (22.0-30.0) sec D-Dimer (<0.60) mg/L FEU Glucose 104 H (74-99) mg/dL POC Glucose (mg/dL) (75-99) mg/dL CT scan - chest: report reviewed Assessment and Plan (1) Pulmonary embolism Narrative/Plan: Patient's dose of Lovenox was recently decreased from 1 mg/kg twice a day to 1- 1/2 mg/kg daily for convenience as well as long-term sequela of twice a day SQ injections. Unfortunately, patient has developed new thrombosis at this dose. Recommendation is for patient to return to her 1 mg/kg twice a day dose. Dr. Kidd discussed this with patient and her family. They verbalized understanding the recommendations. Continue heparin drip for now as patient is moderate to severely symptomatic Current Visit: Yes Status: Acute Priority: High Code(s): I26.99 - OTHER PULMONARY EMBOLISM WITHOUT ACUTE COR PULMONALE SNOMED Code(s): 89504130 (2) Hypercoagulable state Current Visit: No Status: Chronic Priority: High Code(s): D68.59 - OTHER PRIMARY THROMBOPHILIA SNOMED Code(s): 64664120 Plan: Doctor attests: I performed a history and physical examination of this patient, developed impression and plan of care, discussed with dictator. I agree with dictators note, documented as a scribe.
--- NOTE | 2019-08-07 16:09 | P.CNPUL ---
History of Present Illness Consult date: 08/07/19 Reason for consult: dyspnea, chest pain, pulmonary embolism Chief complaint: Shortness of breath and chest pain History of present illness: this is a 64-year-old female who was seen eval reexamined in ICU patient has a recurrent history of DVT PE has been on lifelong anticoagulation with the Lovenox shots, She was initially on Coumadin, trialed on other anticoagulants, i.e. Xarelto-cause muscle aches, resumed Coumadin. 10/14/15 she had chest pain, INR was slightly subtherapeutic (1.8), was referred to have spiral CT scan of chest which confirmed new RML and RLL pulmonary emboli, had echocardiogram which was suspicious for cardiac thrombus, GABI confirmed cardiac thrombus. She was changed to lovenox. 02/15/17 hospitalized for chest pain, had acute on chronic DVT in the E, she was on a reduced dose of lovenox at that time. She was trialed on eliquis in early 2018 (due to cumulative effects of BID SQ injections) but, had side effects that were intolerable so, she resumed lovenox. She was last seen 07/15/2019, it was discussed changing the dose to 150 mg daily. Pt stated increasing sharp chest pain, associated with SOB, activity intolerance. She denied fevers, neurological symptoms, nausea, sweats. her admit computed tomography scan revealed nonspecific nodules however a mass of 2.79 cm seen in the left lobe of the liver with acute pulmonary embolism involving secondary and distal branches predominantly on the right lower lobe pulmonary infarction of the right side cannot be excluded Review of Systems All systems: negative Past Medical History Past Medical History: Blood Disorder, Deep Vein Thrombosis (DVT), GERD/Reflux, Pulmonary Embolus (PE) Additional Past Medical History / Comment(s): MTHFR "coke bottle" L leg, factor 5, beginning macular degeneration bilat, sinus problems. History of Any Multi-Drug Resistant Organisms: None Reported Past Surgical History: Appendectomy, Cholecystectomy, Hysterectomy, Orthopedic Surgery Additional Past Surgical History / Comment(s): [place] filter, L achilles tendon repair, left leg stents 3 or 4, R rotator cuff repair, bilateral knee art hroscopies, 2012 ccath normal, GABI, bronchoscopy. Past Anesthesia/Blood Transfusion Reactions: No Reported Reaction, Motion Sickness Additional Past Anesthesia/Blood Transfusion Reaction / Comment(s): Pt has clausterphobia Past Psychological History: No Psychological Hx Reported Additional Psychological History / Comment(s): Pt resides with her spouse. She uses no device (she does have a cane but choses not to use it at this point), she drives. She is the mother of 11 children and 8 grandchildren. 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 She drives. Smoking Status: Never smoker Past Alcohol Use History: None Reported Past Drug Use History: None Reported - Past Family History Father Family Medical History: Cancer Additional Family Medical History / Comment(s): Father had bladder cancer and lung cancer. Mother Family Medical History: Cancer, Deep Vein Thrombosis (DVT) Additional Family Medical History / Comment(s): Mother of ovarian cancer Sister(s) Family Medical History: Cancer Additional Family Medical History / Comment(s): Ovarian Cancer with metastasis to kidney with urostomy Medications and Allergies Home Medications Medication Instructions Recorded Confirmed Type Furosemide [Lasix] 40 mg PO DAILY PRN 10/14/15 08/06/19 History Omeprazole [PriLOSEC] 20 mg PO DAILY 10/14/15 08/06/19 History traZODone HCL 150 mg PO HS #0 10/19/15 08/06/19 Rx Acetaminophen [Tylenol] 500 mg PO Q6H PRN 02/03/17 08/06/19 History Ergocalciferol (Vitamin D2) 50,000 unit PO SA 02/03/17 08/06/19 History [Vitamin D2] Oxybutynin Chloride [Ditropan] 5 mg PO HS 02/03/17 08/06/19 History Albuterol Inhaler [Ventolin Hfa 2 puff INHALATION RT-Q6H PRN 08/06/19 08/06/19 History Inhaler] Enoxaparin [Lovenox] 100 mg SQ BID 08/06/19 08/06/19 History Magnesium 400 mg PO HS 08/06/19 08/06/19 History Allergies Allergy/AdvReac Type Severity Reaction Status Date / Time adhesive Allergy Rash/Hives Verified 08/06/19 17:55 codeine Allergy Rash/Hives Verified 08/06/19 17:55 egg Allergy Nausea & Verified 08/06/19 17:55 Vomiting & Diarrhea hydrocodone bitartrate Allergy Rash/Hives Verified 08/06/19 17:55 [From [place]] Physical Exam Vitals: Vital Signs Temp Pulse Pulse Resp BP BP Pulse Ox 08/07/19 12:00 98.0 F 65 12 121/67 96 08/07/19 08:00 64 14 140/81 96 08/07/19 04:00 95.4 F L 70 13 140/81 98 08/07/19 00:00 71 109/63 96 08/06/19 23:30 81 109/63 08/06/19 23:00 66 108/66 95 08/06/19 22:30 74 116/63 08/06/19 22:00 81 116/63 08/06/19 21:54 76 18 127/73 96 08/06/19 21:30 76 112/80 08/06/19 21:00 77 19 130/76 97 08/06/19 20:30 80 118/88 08/06/19 20:00 77 18 127/75 96 08/06/19 19:30 86 124/76 08/06/19 19:00 75 130/78 08/06/19 18:30 98.3 F 73 20 118/70 96 08/06/19 18:10 98.3 F 66 15 129/74 96 08/06/19 18:00 76 18 108/73 96 08/06/19 17:30 73 20 119/69 95 08/06/19 16:30 78 20 116/67 95 Intake and Output 08/07/19 08/07/19 08/07/19 06:59 14:59 22:59 Intake Total 412.513 316.831 Output Total 0 Balance 412.513 316.831 Intake: Intake, IV Titration 312.513 66.831 Amount Heparin Sod,Pork in 0.45% 172.513 66.831 NaCl 25,000 unit In 0.45 % NaCl 1 250ml.bag @ 18 UNITS/KG/HR 17.309 mls/hr IV .[id number] [facility] Rx#: [id number] Sodium Chloride 0.9% 1, 140 000 ml @ 75 mls/hr IV . [id number] ONE Rx#:[id number] Oral 100 250 Output: Urine 0 Other: Voiding Method Bedside Commode Bedside Commode # Voids 2 Weight 98.1 kg - Constitutional General appearance: disheveled, morbidly obese, no acute distress - EENT Eyes: EOMI, PERRLA, normal appearance ENT: normal oropharynx Ears: bilateral: normal - Neck Neck: normal ROM Carotids: bilateral: upstroke normal - Respiratory Respiratory: bilateral: CTA - Cardiovascular Rhythm: regular Heart sounds: normal: S1, S2 - Gastrointestinal General gastrointestinal: normal bowel sounds, soft - Neurologic Neurologic: CNII-XII intact - Musculoskeletal Musculoskeletal: gait normal, generalized weakness, strength equal bilaterally - Psychiatric Psychiatric: A&O x's 3, appropriate affect, intact judgment & insight Results - Laboratory Findings CBC and BMP: 08/07/19 05:54 08/07/19 05:54 PT/INR, D-dimer PT 13.3 sec (9.0-12.0) H 08/07/19 01:04 INR 1.3 (<1.2) H 08/07/19 01:04 D-Dimer 6.52 mg/L FEU (<0.60) H 08/06/19 15:04 Abnormal lab findings: Abnormal Labs 08/06/19 08/06/19 08/07/19 15:04 15:04 00:57 PT INR APTT D-Dimer 6.52 H Glucose 108 H POC Glucose (mg/dL) 122 H 08/07/19 08/07/19 08/07/19 01:04 02:12 05:54 PT 13.3 H INR 1.3 H APTT 156.8 H* D-Dimer Glucose 104 H POC Glucose (mg/dL) 08/07/19 11:36 PT INR APTT 71.3 H D-Dimer Glucose POC Glucose (mg/dL) - Diagnostic Findings Chest x-ray: report reviewed, image reviewed CT scan - chest: report reviewed, image reviewed Assessment and Plan Assessment: acute pulmonary embolism Pulmonary infarction Chronic history of DVT PE Chest pain right-sided due to pulmonary infarction 2.9 cm mass in the left lobe of the liver Plan: continue heparin for now Patient will be eventually switched to high-dose Lovenox 100 mg twice a day or 200 mg daily Pain medications Deep breathing exercises incentive spirometry Further evaluation pending plan of care as per clinical response of the patient Time with Patient: Greater than 30
--- NOTE | 2019-08-07 17:46 | P.HPIM ---
History of Present Illness H&P Date: 08/07/19 Chief Complaint: chest pain Patient is a 64-year-old female, patient of Dr. Roberts and Dr Demarco Russell. 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 Patient is on long-term anticoagulation in the form of Lovenox. She was initially on Coumadin, with trials of i.e. Xarelto which caused muscle aches, resumed Coumadin. 10/14/15 she had chest pain, INR was slightly subtherapeutic (1.8), and a spiral CT scan of chest confirmed RML and RLL pulmonary emboli. Echocardiogram which was suspicious for cardiac thrombus, GABI confirmed this. She was changed to lovenox. 02/15/17 hospitalized for chest pain, had acute on chronic DVT in the LLE, she was on a reduced dose of lovenox at that time. She was trialed on eliquis in early 2018 (due to cumulative effects of BID SQ injections) but, had side effects that were intolerable so, she resumed lovenox. She was last seen by Hem/Onc 07/15/2019 for possible Lovenox reduction. Pt stated having increased sharp right sided chest pain, associated with SOB, activity intolerance. She denied fevers, neurological symptoms, nausea, sweats. She came to the ER at [facility] and had a CTA chest with findings compatible with New PE in the secondary and distal branches of the RLL. She also has 2.9 cm left lobe liver mass incidental finding. Currently she is in the ICU with ongoing right sided chest pain. no nause or vomiting. Patient better with rest. Review of Systems All systems: negative Past Medical History Past Medical History: Blood Disorder, Deep Vein Thrombosis (DVT), GERD/Reflux, Pulmonary Embolus (PE) Additional Past Medical History / Comment(s): MTHFR "coke bottle" L leg, factor 5, beginning macular degeneration bilat, sinus problems. History of Any Multi-Drug Resistant Organisms: None Reported Past Surgical History: Appendectomy, Cholecystectomy, Hysterectomy, Orthopedic Surgery Additional Past Surgical History / Comment(s): [place] filter, L achilles tendon repair, left leg stents 3 or 4, R rotator cuff repair, bilateral knee arthroscopies, 2012 ccath normal, GABI, bronchoscopy. Past Anesthesia/Blood Transfusion Reactions: No Reported Reaction, Motion Sickness Additional Past Anesthesia/Blood Transfusion Reaction / Comment(s): Pt has clausterphobia Past Psychological History: No Psychological Hx Reported Additional Psychological History / Comment(s): Pt resides with her spouse. She uses no device (she does have a cane but choses not to use it at this point), she drives. She is the mother of 11 children and 8 grandchildren. 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 She drives. Smoking Status: Never smoker Past Alcohol Use History: None Reported Past Drug Use History: None Reported - Past Family History Father Family Medical History: Cancer Additional Family Medical History / Comment(s): Father had bladder cancer and lung cancer. Mother Family Medical History: Cancer, Deep Vein Thrombosis (DVT) Additional Family Medical History / Comment(s): Mother of ovarian cancer Sister(s) Family Medical History: Cancer Additional Family Medical History / Comment(s): Ovarian Cancer with metastasis to kidney with urostomy Medications and Allergies Home Medications Medication Instructions Recorded Confirmed Type Furosemide [Lasix] 40 mg PO DAILY PRN 10/14/15 08/06/19 History Omeprazole [PriLOSEC] 20 mg PO DAILY 10/14/15 08/06/19 History traZODone HCL 150 mg PO HS #0 10/19/15 08/06/19 Rx Acetaminophen [Tylenol] 500 mg PO Q6H PRN 02/03/17 08/06/19 History Ergocalciferol (Vitamin D2) 50,000 unit PO SA 02/03/17 08/06/19 History [Vitamin D2] Oxybutynin Chloride [Ditropan] 5 mg PO HS 02/03/17 08/06/19 History Albuterol Inhaler [Ventolin Hfa 2 puff INHALATION RT-Q6H PRN 08/06/19 08/06/19 History Inhaler] Enoxaparin [Lovenox] 100 mg SQ BID 08/06/19 08/06/19 History Magnesium 400 mg PO HS 08/06/19 08/06/19 History Allergies Allergy/AdvReac Type Severity Reaction Status Date / Time adhesive Allergy Rash/Hives Verified 08/06/19 17:55 codeine Allergy Rash/Hives Verified 08/06/19 17:55 egg Allergy Nausea & Verified 08/06/19 17:55 Vomiting & Diarrhea hydrocodone bitartrate Allergy Rash/Hives Verified 08/06/19 17:55 [From [place]] Physical Exam Vitals: Vital Signs Temp Pulse Pulse Resp BP BP Pulse Ox 08/07/19 16:00 72 14 121/67 95 08/07/19 12:00 98.0 F 65 12 121/67 96 08/07/19 08:00 64 14 140/81 96 08/07/19 04:00 95.4 F L 70 13 140/81 98 08/07/19 00:00 71 109/63 96 08/06/19 23:30 81 109/63 08/06/19 23:00 66 108/66 95 08/06/19 22:30 74 116/63 08/06/19 22:00 81 116/63 08/06/19 21:54 76 18 127/73 96 08/06/19 21:30 76 112/80 08/06/19 21:00 77 19 130/76 97 08/06/19 20:30 80 118/88 08/06/19 20:00 77 18 127/75 96 08/06/19 19:30 86 124/76 08/06/19 19:00 75 130/78 08/06/19 18:30 98.3 F 73 20 118/70 96 08/06/19 18:10 98.3 F 66 15 129/74 96 08/06/19 18:00 76 18 108/73 96 08/06/19 17:30 73 20 119/69 95 Intake and Output 08/07/19 08/07/19 08/07/19 06:59 14:59 22:59 Intake Total 412.513 316.831 Output Total 0 Balance 412.513 316.831 Intake: Intake, IV Titration 312.513 66.831 Amount Heparin Sod,Pork in 0.45% 172.513 66.831 NaCl 25,000 unit In 0.45 % NaCl 1 250ml.bag @ 18 UNITS/KG/HR 17.309 mls/hr IV .[id number] [facility] Rx#: [id number] Sodium Chloride 0.9% 1, 140 000 ml @ 75 mls/hr IV . [id number] ONE Rx#:[id number] Oral 100 250 Output: Urine 0 Other: Voiding Method Bedside Commode Bedside Commode Bedside Commode # Voids 2 Weight 98.1 kg appears uncomfortable due to pain - Constitutional General appearance: obese - EENT Eyes: PERRLA ENT: normal oropharynx - Neck Neck: no lymphadenopathy, no thyromegaly - Respiratory Respiratory: bilateral: diminished - Cardiovascular Heart sounds: normal: S1, S2 Abnormal Heart Sounds: no systolic murmur - Gastrointestinal General gastrointestinal: normal bowel sounds - Neurologic Neurologic: CNII-XII intact, focal deficits Results CBC & Chem 7: 08/07/19 05:54 08/07/19 05:54 Labs: Abnormal Lab Results - Last 24 Hours (Table) 08/07/19 08/07/19 08/07/19 Range/Units 00:57 01:04 02:12 PT 13.3 H (9.0-12.0) sec INR 1.3 H (<1.2) APTT 156.8 H* (22.0-30.0) sec Glucose (74-99) mg/dL POC Glucose (mg/dL) 122 H (75-99) mg/dL 08/07/19 08/07/19 Range/Units 05:54 11:36 PT (9.0-12.0) sec INR (<1.2) APTT 71.3 H (22.0-30.0) sec Glucose 104 H (74-99) mg/dL POC Glucose (mg/dL) (75-99) mg/dL Thrombosis Risk Factor Assmnt - DVT/VTE Prophylaxis DVT/VTE Prophylaxis: Pharmacologic Prophylaxis ordered - Choose All That Apply Any of the Below Risk Factors Present?: Yes Each Factor Represents 1 point: Swollen legs (current) Each Risk Factor Represents 2 Points: Age 61-74 years Each Risk Factor Represents 3 Points: Positive Factor V Leiden, History of DVT/PE Other congenital or acquired thrombophilia - If yes, enter type in comment: No Thrombosis Risk Factor Assessment Total Risk Factor Score: 9 Thrombosis Risk Factor Assessment Level: High Risk Assessment and Plan (1) MTHFR gene mutation Current Visit: Yes Status: Acute Code(s): E72.12 - METHYLENETETRAHYDROFOLATE REDUCTASE DEFICIENCY SNOMED Code(s): 97888390 (2) Factor V Leiden Current Visit: Yes Status: Acute Code(s): D68.51 - ACTIVATED PROTEIN C RESISTANCE SNOMED Code(s): 098533600 (3) Pulmonary embolism Current Visit: Yes Status: Acute Priority: High Code(s): I26.99 - OTHER PULMONARY EMBOLISM WITHOUT ACUTE COR PULMONALE SNOMED Code(s): 82833338 (4) Bilateral leg pain Current Visit: No Status: Acute Code(s): M79.604 - PAIN IN RIGHT LEG; M79.605 - PAIN IN LEFT LEG SNOMED Code(s): 96221287 (5) Chest pain Current Visit: No Status: Acute Code(s): R07.9 - CHEST PAIN, UNSPECIFIED SNOMED Code(s): 47057493 (6) Hx of pulmonary embolus Current Visit: No Status: Acute Code(s): Z86.711 - PERSONAL HISTORY OF PULMONARY EMBOLISM SNOMED Code(s): 285810642 (7) Recurrent deep vein thrombosis (DVT) of left lower extremity Current Visit: No Status: Acute Priority: High Code(s): I82.402 - ACUTE EMBOLISM AND THOMBOS UNSP DEEP VEINS OF L LOW EXTREM SNOMED Code(s): 221161056 (8) Hypercoagulable state Current Visit: No Status: Chronic Priority: High Code(s): D68.59 - OTHER PRIMARY THROMBOPHILIA SNOMED Code(s): 27429730 (9) emt intermediate (current) use of anticoagulants Current Visit: Yes Status: Acute Code(s): Z79.01 - [facility] (CURRENT) USE OF ANTICOAGULANTS SNOMED Code(s): 717205310 Plan: Consult Hem/Onc ,pulmonology, and cardiolofy regarding current sx High dose heparin continue toradol and Dilaudid for pain control repeat labs in am reevaluate in next 24 hrs
[2019-08-07] MEDS: OXYBUTYNIN CHLORIDE 5 MG TAB PO SCH (20:33)
[2019-08-07] MEDS: MAGNESIUM OXIDE 400 MG TAB PO SCH (20:34)
[2019-08-07] MEDS: traZODone HCL 100 MG TAB PO SCH (20:34)
[2019-08-08] MEDS: HEPARIN SOD,PORK IN 0.45% NACL 25,000 UNIT in 0.45% NACL 1 250ML.BAG IV SCH ×3 (01:23→21:47)
[2019-08-08] MEDS: diphenhydrAMINE 25 MG CAP PO PRN ×2 (05:49→23:10)
[2019-08-08 06:56] LABS: African American GFR (CKD) >90 (>60 ml/min/1.73 sqM); Anion Gap 8 mmol/L; Blood Urea Nitrogen 9 mg/dL (7-17); Calcium 8.9 mg/dL (8.4-10.2); Carbon Dioxide 24 mmol/L (22-30); Chloride 107 mmol/L (98-107); Glucose 108 mg/dL (74-99); Magnesium 1.9 mg/dL (1.6-2.3); Non-African American GFR(CKD) >90 (>60 ml/min/1.73 sqM); Sodium 139 mmol/L (137-145)
[2019-08-08 07:04] LABS: Potassium 4.1 mmol/L (3.5-5.1)
[2019-08-08 07:36] LABS: HCT 36.4 % (34.0-46.0); HGB 12.3 gm/dL (11.4-16.0); MCH 30.8 pg (25.0-35.0); MCHC 33.9 g/dL (31.0-37.0); MCV 90.8 fL (80.0-100.0); Mean Platelet Volume 8.5; Platelet Count 182 k/uL (150-450); RBC 4.01 m/uL (3.80-5.40); RDW 13.3 % (11.5-15.5)
[2019-08-08] MEDS: PANTOPRAZOLE 40 MG/10 ML VIAL IVP SCH (09:10)
[2019-08-08] MEDS: HYDROmorphone 1 MG/ML 1 ML SYRINGE IVP PRN ×4 (09:10→21:46)
--- NOTE | 2019-08-08 09:20 | ECHOF ---
Referral Reason:PE MEASUREMENTS -------- HEIGHT: 175.3 cm WEIGHT: 98.0 kg BP: 140/81 RVIDd: 2.8 cm (< 3.3) IVSd: 1.0 cm (0.6 - 1.1) LVIDd: 4.5 cm (3.9 - 5.3) LVPWd: 0.9 cm (0.6 - 1.1) IVSs: 1.6 cm LVIDs: 2.8 cm LVPWs: 1.4 cm LA Diam: 3.7 cm (2.7 - 3.8) LAESV Index (A-L): 19.96 ml/m Ao Diam: 2.7 cm (2.0 - 3.7) AV Cusp: 1.9 cm (1.5 - 2.6) MV EXCURSION: 16.269 mm (> 18.000) MV EF SLOPE: 127 mm/s (70 - 150) EPSS: 0.6 cm MV E Ajith: 1.27 m/s MV DecT: 168 ms MV A Ajith: 0.96 m/s MV E/A Ratio: 1.33 AV maxP.64 mmHg AV meanP.40 mmHg RAP: 5.00 mmHg RVSP: 47.73 mmHg FINDINGS -------- Sinus rhythm. This was a technically difficult study with suboptimal apical views. The left ventricular size is normal. Left ventricular wall thickness is normal. Overall left vent ricular systolic function is normal with, an EF between 60 - 65 %. Mass like stracture in LV The right ventricle is normal in size. Normal LA size by volume 22+/-6 ml/m2. The right atrium is normal in size. Lumason used Interatrial and interventricular septum intact. There is mild aortic valve sclerosis. Peak/mean gradient across the Aortic Valve is 15.64mmHg / 7.4 0mmHg. Mild mitral regurgitation is present. Mild tricuspid regurgitation present. There is mild to moderate pulmonary hypertension. The right ventricular systolic pressure, as measured by Doppler, is 47.73mmHg. The pulmonic valve was not well visualized. The aortic root size is normal. Normal inferior vena cava with normal inspiratory collapse consistent with estimated right atrial pre ssure of 5 mmHg. There is a trivial pericardial effusion present. CONCLUSIONS -------- 1. Sinus rhythm. 2. This was a technically difficult study with suboptimal apical views. 3. The left ventricular size is normal. 4. Left ventricular wall thickness is normal. 5. Overall left ventricular systolic function is normal with, an EF between 60 - 65 %. 6. Mass like stracture in LV 7. The right ventricle is normal in size. 8. Normal LA size by volume 22+/-6 ml/m2. 9. The right atrium is normal in size. 10. Lumason used 11. Interatrial and interventricular septum intact. 12. There is mild aortic valve sclerosis. 13. Peak/mean gradient across the Aortic Valve is 15.64mmHg / 7.40mmHg. 14. Mild mitral regurgitation is present. 15. Mild tricuspid regurgitation present. 16. There is mild to moderate pulmonary hypertension. 17. The right ventricular systolic pressure, as measured by Doppler, is 47.73mmHg. 18. The pulmonic valve was not well visualized. 19. The aortic root size is normal. 20. Normal inferior vena cava with normal inspiratory collapse consistent with estimated right atrial pressure of 5 mmHg. 21. There is a trivial pericardial effusion present. BLUEPRINT CUTTER: Akua Perry RDCS
[2019-08-08 09:43] LABS: Lymphocytes # (M) 1.38 k/uL (1.0-4.8); Monocytes # (M) 0.72 k/uL (0-1.0); Neutrophils % (M) 60 %; Nucleated Red Blood Cells 0 /100 WBC (0-0); Total Cells Counted 100
--- NOTE | 2019-08-08 11:39 | P.PN ---
Subjective Progress Note Date: 08/08/19 Principal diagnosis: acute pulmonary embolism Pulmonary infarction Chronic history of DVT PE Chest pain right-sided due to pulmonary infarction 2.9 cm mass in the left lobe of the liver 08/08/2019, patient seen eval examined during the rounds labs reviewed medications reviewed, still have some chest pain but severity of pain has improved patient is breathing her. More better patient is on IV heparin she's to be resumed on Lovenox 100 mg subcu 2 times a day, this is a 64-year-old female who was seen eval reexamined in ICU patient has a recurrent history of DVT PE has been on lifelong anticoagulation with the Lovenox shots, She was initially on Coumadin, trialed on other anticoagulants, i.e. Xarelto-cause muscle aches, resumed Coumadin. 10/14/15 she had chest pain, INR was slightly subtherapeutic (1.8), was referred to have spiral CT scan of chest which confirmed new RML and RLL pulmonary emboli, had echocardiogram which was suspicious for cardiac thrombus, GABI confirmed cardiac thrombus. She was changed to lovenox. 02/15/17 hospitalized for chest pain, had acute on chronic DVT in the E, she was on a reduced dose of lovenox at that time. She was trialed on eliquis in early 2018 (due to cumulative effects of BID SQ injections) but, had side effects that were intolerable so, she resumed lovenox. She was last seen 07/15/2019, it was discussed changing the dose to 150 mg daily. Pt stated increasing sharp chest pain, associated with SOB, activity intolerance. She denied fevers, neurological symptoms, nausea, sweats. her admit computed tomography scan revealed nonspecific nodules however a mass of 2. 79 cm seen in the left lobe of the liver with acute pulmonary embolism involving secondary and distal branches predominantly on the right lower lobe pulmonary infarction of the right side cannot be excluded Objective - Vital Signs Vital signs: Vital Signs Temp 99.2 F 08/08/19 08:20 Pulse 84 08/08/19 08:20 Resp 18 08/08/19 08:20 BP 126/78 08/08/19 08:20 Pulse Ox 95 08/08/19 08:20 Intake & Output 08/07/19 08/08/19 08/08/19 18:59 06:59 18:59 Intake Total 635.829 593.002 Output Total 400 Balance 235.829 593.002 Weight 98.2 kg Intake: Intake, IV Titration 185.829 131.002 Amount Heparin Sod,Pork in 0.45% 185.829 131.002 NaCl 25,000 unit In 0.45 % NaCl 1 250ml.bag @ 18 UNITS/KG/HR 17.309 mls/hr IV .[id number] [facility] Rx#: [id number] Oral 450 462 Output: Urine 400 Other: Voiding Method Bedside Commode Toilet Toilet # Voids 2 1 - Exam - Constitutional General appearance: disheveled, morbidly obese, no acute distress - EENT Eyes: EOMI, PERRLA, normal appearance ENT: normal oropharynx Ears: bilateral: normal - Neck Neck: normal ROM Carotids: bilateral: upstroke normal - Respiratory Respiratory: bilateral: CTA - Cardiovascular Rhythm: regular Heart sounds: normal: S1, S2 - Gastrointestinal General gastrointestinal: normal bowel sounds, soft - Neurologic Neurologic: CNII-XII intact - Musculoskeletal Musculoskeletal: gait normal, generalized weakness, strength equal bilaterally - Psychiatric Psychiatric: A&O x's 3, appropriate affect, intact judgment & insight - Labs CBC & Chem 7: 08/08/19 06:00 08/08/19 06:00 Labs: Abnormal Lab Results - Last 24 Hours (Table) 08/07/19 08/07/19 08/08/19 Range/Units 11:36 17:20 06:00 APTT 71.3 H 68.6 H (22.0-30.0) sec Glucose 108 H (74-99) mg/dL 08/08/19 Range/Units 06:00 APTT 63.3 H (22.0-30.0) sec Glucose (74-99) mg/dL Assessment and Plan Assessment: acute pulmonary embolism Pulmonary infarction Chronic history of DVT PE Chest pain right-sided due to pulmonary infarction 2.9 cm mass in the left lobe of the liver Plan: continue heparin for now, Patient will be eventually switched to high-dose Lovenox 100 mg twice a day or 200 mg daily Pain medications Deep breathing exercises incentive spirometry Evaluation as per oncology of left lobe of the liver Further evaluation pending plan of care as per clinical response of the patient Time with Patient: Greater than 30
--- NOTE | 2019-08-08 12:22 | P.PN ---
Subjective Progress Note Date: 08/08/19 This is a 64-year-old female who follows with Dr. 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 Patient presented to the hospital with a sudden onset of shortness of breath with associated right-sided chest discomfort. It started in the morning, and progressively worsened through the day, so the patient came to the emergency room for further evaluation and treatment. Chest x-ray on presentation here showed minimal right basilar atelectasis otherwise no acute pulmonary process. CTA of the chest compatible with acute pulmonary embolism involving the secondary and distal branches extending into the right lower lobe. There is also a 3 mm right middle lobe pulmonary nodule noted and a 2.9 cm mass in the left lobe of the liver not clearly seen on prior exam. EKG shows normal sinus rhythm with nonspecific ST-T wave changes. Blood pressure 140/80 with heart rate in the 60s, 96% on 2 L of oxygen. White blood cell count 7.5, hemoglobin 12.3, platelet count 162. D-dimer 6.5, sodium 138, potassium 3.8, BUN 11, creatinine 0.7. Magnesium 1.9, troponins negative 3. Cholesterol 200, LDL 105, triglycerides 275, HDL 40. At the time of my examination in the intensive care unit this morning, patient still complains of some discomfort with deep breathing in the right chest area. Mildly short of breath. Currently on IV heparin. 08 08 2019 Patient was seen and examined this morning, overall she states that she had a good night, her breathing today as stable. Echocardiogram with Doppler study was performed which revealed a normal left ventricular systolic function with evidence of a thrombus in the left ventricle, on prior GABI that was performed. There was also evidence of a left ventricular thrombus at that time. Anticoagulation per hemotology. Objective - Vital Signs Vital signs: Vital Signs Temp 99.2 F 08/08/19 08:20 Pulse 84 08/08/19 08:20 Resp 18 08/08/19 08:20 BP 126/78 08/08/19 08:20 Pulse Ox 95 08/08/19 08:20 Intake & Output 08/07/19 08/08/19 08/08/19 18:59 06:59 18:59 Intake Total 635.829 593.002 Output Total 400 Balance 235.829 593.002 Weight 98.2 kg Intake: Intake, IV Titration 185.829 131.002 Amount Heparin Sod,Pork in 0.45% 185.829 131.002 NaCl 25,000 unit In 0.45 % NaCl 1 250ml.bag @ 18 UNITS/KG/HR 17.309 mls/hr IV .[id number] PETRONA Rx#: [id number] Oral 450 462 Output: Urine 400 Other: Voiding Method Bedside Commode Toilet Toilet # Voids 2 1 - Exam PHYSICAL EXAMINATION: HEENT: Head is atraumatic, normocephalic. Pupils equal, round. Neck is supple. There is no elevated jugular venous pressure. HEART EXAMINATION: Heart S1, S2 normal. No murmur or gallop heard. CHEST EXAMINATION: Lungs are clear to auscultation and precussion. Positive right sided chest wall tenderness is noted with deep breathing. ABDOMEN: Soft, nontender. Bowel sounds are heard. No organomegaly noted. EXTREMITIES: 2+ peripheral pulses with no evidence of peripheral edema and no calf tenderness noted. NEUROLOGIC patient is awake, alert and oriented -3. - Labs CBC & Chem 7: 08/08/19 06:00 08/08/19 06:00 Labs: Abnormal Lab Results - Last 24 Hours (Table) 08/07/19 08/07/19 08/08/19 Range/Units 11:36 17:20 06:00 APTT 71.3 H 68.6 H (22.0-30.0) sec Glucose 108 H (74-99) mg/dL 08/08/19 Range/Units 06:00 APTT 63.3 H (22.0-30.0) sec Glucose (74-99) mg/dL Assessment and Plan Plan: Assessment and plan #1 symptoms of sudden onset of shortness of breath with right-sided chest pain, evidence of acute pulmonary embolism. #2 history of recurrent DVT of the lower extremity, #3 history of PE #4 factor V Leiden deficiency, MTHFR, follows with hematology as an outpatient. 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 From cardiology's perspective we will continue this patient on her current medications. Anticoagulation as per hematology. DNP note has been reviewed, I agree with a documented findings and plan of care. Patient was seen and examined.
--- NOTE | 2019-08-08 15:31 | P.PN ---
Subjective Progress Note Date: 08/08/19 Patient is a 64-year-old female, patient of Dr. Roberts and Dr Demarco Russell. 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 Patient is on long-term anticoagulation in the form of Lovenox. She was initially on Coumadin, with trials of i.e. Xarelto which caused muscle aches, resumed Coumadin. 10/14/15 she had chest pain, INR was slightly subtherapeutic (1.8), and a spiral CT scan of chest confirmed RML and RLL pulmonary emboli. Echocardiogram which was suspicious for cardiac thrombus, GABI confirmed this. She was changed to lovenox. 02/15/17 hospitalized for chest pain, had acute on chronic DVT in the LLE, she was on a reduced dose of lovenox at that time. She was trialed on eliquis in early 2018 (due to cumulative effects of BID SQ injections) but, had side effects that were intolerable so, she resumed lovenox. She was last seen by Hem/Onc 07/15/2019 for possible Lovenox reduction. Pt stated having increased sharp right sided chest pain, associated with SOB, activity intolerance. She denied fevers, neurological symptoms, nausea, sweats. She came to the ER at [facility] and had a CTA chest with findings compatible with New PE in the secondary and distal branches of the RLL. She also has 2.9 cm left lobe liver mass incidental finding. Currently she is in the ICU with ongoing right sided chest pain. no nause or vomiting. Patient better with rest. 08/09/2019 maintain on heparin drip as per hematology. Chest CT reported 2.9 cm mass in the liver,3 mm middle lobe pulmonary nodule.pain improving, dose decreased, only requiring q shift.T-max 99.2. Objective - Vital Signs Vital signs: Vital Signs Temp 99.2 F 08/08/19 08:20 Pulse 74 08/08/19 11:35 Resp 16 08/08/19 11:35 BP 130/61 08/08/19 11:35 Pulse Ox 94 L 08/08/19 11:35 Intake & Output 08/07/19 08/08/19 08/08/19 18:59 06:59 18:59 Intake Total 635.829 593.002 235 Output Total 400 Balance 235.829 593.002 235 Weight 98.2 kg Intake: IV 115 Heparin Sod,Pork in 0.45% 115 NaCl 25,000 unit In 0.45 % NaCl 1 250ml.bag @ 18 UNITS/KG/HR 17.309 mls/hr IV .[id number] PETRONA Rx#: [id number] Intake, IV Titration 185.829 131.002 Amount Heparin Sod,Pork in 0.45% 185.829 131.002 NaCl 25,000 unit In 0.45 % NaCl 1 250ml.bag @ 18 UNITS/KG/HR 17.309 mls/hr IV .[id number] PETRONA Rx#: [id number] Oral 450 462 120 Output: Urine 400 Other: Voiding Method Bedside Commode Toilet Toilet # Voids 2 1 2 - Exam PHYSICAL EXAM: VITAL SIGNS: [as above] GENERAL: for bed, no acute distress HEENT: Conjunctivae normal. eyes normal. oral mucosa moist NECK: No JVD. No thyroid enlargement. No LNs CARDIOVASCULAR: S1, S2 regular.. No murmur RESPIRATION: right chest wall tenderness.Breath sounds diminished in the bases. No rhonchi or crackles. No bronchial breathing. ABDOMEN: Soft, nontender . No guarding. no masses palpable. No ascites, No hepatosplenomegaly.Bowel sounds heard. LEGS: No edema. no swelling PSYCHIATRY: Alert and oriented X3, mood and affect normal. NERVOUS SYSTEM: Cranial N 2-12 grossly normal. Moves all 4 limbs. Diffuse weakness No focal deficits. Strength and sensation grossly intact.. Skin: no rash - Labs CBC & Chem 7: 08/08/19 06:00 08/08/19 06:00 Labs: Abnormal Lab Results - Last 24 Hours (Table) 08/07/19 08/08/19 08/08/19 Range/Units 17:20 06:00 06:00 APTT 68.6 H 63.3 H (22.0-30.0) sec Glucose 108 H (74-99) mg/dL Assessment and Plan Assessment: (1) MTHFR gene mutation Current Visit: Yes Status: Acute Code(s): E72.12 - METHYLENETETRAHYDROFOLATE REDUCTASE DEFICIENCY SNOMED Code(s): 25333252 (2) Factor V Leiden Current Visit: Yes Status: Acute Code(s): D68.51 - ACTIVATED PROTEIN C RESISTANCE SNOMED Code(s): 912199838 (3) Pulmonary embolism Current Visit: Yes Status: Acute Priority: High Code(s): I26.99 - OTHER PULMONARY EMBOLISM WITHOUT ACUTE COR PULMONALE SNOMED Code(s): 83961975 (4) Bilateral leg pain Current Visit: No Status: Acute Code(s): M79.604 - PAIN IN RIGHT LEG; M79.605 - PAIN IN LEFT LEG SNOMED Code(s): 98143452 (5) Chest pain Current Visit: No Status: Acute Code(s): R07.9 - CHEST PAIN, UNSPECIFIED SNOMED Code(s): 23996702 (6) Hx of pulmonary embolus Current Visit: No Status: Acute Code(s): Z86.711 - PERSONAL HISTORY OF PULMONARY EMBOLISM SNOMED Code(s): 539007846 (7) Recurrent deep vein thrombosis (DVT) of left lower extremity Current Visit: No Status: Acute Priority: High Code(s): I82.402 - ACUTE EMBOLISM AND THOMBOS UNSP DEEP VEINS OF L LOW EXTREM SNOMED Code(s): 196466506 (8) Hypercoagulable state Current Visit: No Status: Chronic Priority: High Code(s): D68.59 - OTHER PRIMARY THROMBOPHILIA SNOMED Code(s): 55409095 (9) [facility] (current) use of anticoagulants Current Visit: Yes Status: Acute Code(s): Z79.01 - [employer] (CURRENT) USE OF ANTICOAGULANTS SNOMED Code(s): 746489342 (10) 2.9 cm left lobe liver mass (11) 3 mm right middle lobe pulmonary nodule, six-month follow-up recommended. plan: Continue on current medication regime ,monitoring and systemic treatment. Ultrasound of liver ordered as follow-up to CT suggesting liver mass. Anticoagulation as per hematology. aggressive pulmonary toileting with incentive spirometer reinforced. Pain management. Further recommendations to follow. The impression and plan of care has been dictated as directed. : I performed a history and examination of this patient, discussed the same with the dictator. I agree with the dictator's note ,documented as a scribe. Any additional findings or plans will be noted.
--- NOTE | 2019-08-08 16:30 | P.PN ---
Subjective Progress Note Date: 08/08/19 Principal diagnosis: recurrent PE, on anticoagulation In f/u pt still has right chest wall sharp pain with inspiration, better then yesterday, no bleeding to report, incidentally there was a liver mass found on the CTA. Objective - Vital Signs Vital signs: Vital Signs Temp 98.8 F 08/08/19 16:00 Pulse 72 08/08/19 16:00 Resp 16 08/08/19 16:00 BP 127/60 08/08/19 16:00 Pulse Ox 94 L 08/08/19 16:00 Intake & Output 08/07/19 08/08/19 08/08/19 18:59 06:59 18:59 Intake Total 635.829 593.002 235 Output Total 400 Balance 235.829 593.002 235 Weight 98.2 kg Intake: IV 115 Heparin Sod,Pork in 0.45% 115 NaCl 25,000 unit In 0.45 % NaCl 1 250ml.bag @ 18 UNITS/KG/HR 17.309 mls/hr IV .[id number] [facility]RONA Rx#: [id number] Intake, IV Titration 185.829 131.002 Amount Heparin Sod,Pork in 0.45% 185.829 131.002 NaCl 25,000 unit In 0.45 % NaCl 1 250ml.bag @ 18 UNITS/KG/HR 17.309 mls/hr IV .[id number] [facility]RONA Rx#: [id number] Oral 450 462 120 Output: Urine 400 Other: Voiding Method Bedside Commode Toilet Toilet # Voids 2 1 2 - Constitutional General appearance: Present: cooperative, no acute distress, obese - EENT Eyes: Present: anicteric sclerae, EOMI ENT: Present: hearing grossly normal - Respiratory Respiratory: bilateral: diminished (weak inspiratory effort, pt has anterior chest discomfort with inspiration ) - Cardiovascular Rhythm: regular Heart sounds: normal: S1, S2 Abnormal Heart Sounds: Present: systolic murmur - Peripheral edema leg Peripheral Edema: bilateral: 2+ (chronic) - Gastrointestinal General gastrointestinal: Present: normal bowel sounds, soft - Neurologic Neurologic: Present: CNII-XII intact - Musculoskeletal Musculoskeletal: Present: strength equal bilaterally - Psychiatric Psychiatric: Present: A&O x's 3, appropriate affect, intact judgment & insight - Labs CBC & Chem 7: 08/08/19 06:00 08/08/19 06:00 Labs: Abnormal Lab Results - Last 24 Hours (Table) 08/07/19 08/08/19 08/08/19 Range/Units 17:20 06:00 06:00 APTT 68.6 H 63.3 H (22.0-30.0) sec Glucose 108 H (74-99) mg/dL - Imaging and Cardiology CT scan - chest: report reviewed Assessment and Plan (1) Pulmonary embolism Narrative/Plan: Patient's dose of Lovenox was recently decreased from 1 mg/kg twice a day to 1- 1/2 mg/kg daily for convenience as well as long-term sequela of twice a day SQ injections. Unfortunately, patient has developed new thrombosis at this dose. Recommendation is for patient to return to her 1 mg/kg twice a day dose. Continue heparin drip for now for symptoms and until pt has had US to evaluate suspicious liver mass to see if it needs to be biopsied. Will also note that pt should have 6mo f/u on the 3mm RML lung nodule Current Visit: Yes Status: Acute Priority: High Code(s): I26.99 - OTHER PULMONARY EMBOLISM WITHOUT ACUTE COR PULMONALE SNOMED Code(s): 70437570 (2) Hypercoagulable state Current Visit: No Status: Chronic Priority: High Code(s): D68.59 - OTHER PRIMARY THROMBOPHILIA SNOMED Code(s): 42605671
[2019-08-08] MEDS: OXYBUTYNIN CHLORIDE 5 MG TAB PO SCH (21:46)
[2019-08-08] MEDS: MAGNESIUM OXIDE 400 MG TAB PO SCH (21:46)
[2019-08-08] MEDS: traZODone HCL 100 MG TAB PO SCH (21:46)
[2019-08-09] MEDS ORDERED: PANTOPRAZOLE 40 MG TABLET PO SCH (07:30)
--- NOTE | 2019-08-09 08:15 | US ---
EXAMINATION TYPE: US liver DATE OF EXAM: 08/09/2019 COMPARISON: CT CLINICAL HISTORY: liver mass or cyst. On multiple medications: blood thinner, GI, bladder; gallbladde r removed EXAM MEASUREMENTS: Liver Length: 16.4 cm Gallbladder Wall: surgically removed CBD: 0.5 cm Right Kidney: 12.5 x 5.9 x 4.2 cm Pancreas: wnl Liver: oval, solid, hyperechoic mass noted superior left lobe =1.4 x 1.7 x 2.1cm and may be possible hemangioma, focal fatty infiltrate, vs. other; mild fatty liver appearance Gallbladder: surgically removed Evidence for sonographic Ta's sign: no CBD: wnl Right Kidney: wnl Right pleural effusion is noted. Limited views of the pancreas are unremarkable. The liver is normal in size. There is a 2.1 cm solid lesion with irregular contours in the left lobe of the liver. This is slightly echogenic and may represent a hemangioma. The gallbladder is been removed. The distal common hepatic duct measures 5 mm. The right kidney is unremarkable. Note is made of a small right-sided effusion. IMPRESSION: 1. 2.1 cm slightly echogenic solid lesion within the left lobe of the liver should BE further investi gated. The CT of the abdomen may be worthwhile or MRI. 2. Status post cholecystectomy. 3. Small right pleural effusion.
[2019-08-09] MEDS ORDERED: ERGOCALCIFEROL 50,000 UNIT CAP PO SCH (09:00)
[2019-08-09] MEDS: ACETAMINOPHEN TAB 500 MG TAB PO PRN (10:04)
[2019-08-09 10:30] VITALS: BP 150/84; PULSE 90; RESP 16; TEMP 98.1
--- NOTE | 2019-08-09 10:40 | P.PN ---
Subjective Progress Note Date: 08/09/19 Principal diagnosis: acute pulmonary embolism Pulmonary infarction Chronic history of DVT PE Chest pain right-sided due to pulmonary infarction 2.9 cm mass in the left lobe of the liver 08/09/2019, patient seen eval examined during the rounds labs reviewed medications reviewed care plan discussed with the patient at length, still on IV heparin can resume Lovenox patient is being followed up by oncology hematology service as well she is status post ultrasoundas 4 left lobe of the liver massnoted ultrasound recommends a CT and CT is recommending ultrasound will defer to oncology service 08/08/2019, patient seen eval examined during the rounds labs reviewed medications reviewed, still have some chest pain but severity of pain has improved patient is breathing her. More better patient is on IV heparin she's to be resumed on Lovenox 100 mg subcu 2 times a day, this is a 64-year-old female who was seen eval reexamined in ICU patient has a r ecurrent history of DVT PE has been on lifelong anticoagulation with the Lovenox shots, She was initially on Coumadin, trialed on other anticoagulants, i.e. Xarelto-cause muscle aches, resumed Coumadin. 10/14/15 she had chest pain, INR was slightly subtherapeutic (1.8), was referred to have spiral CT scan of chest which confirmed new RML and RLL pulmonary emboli, had echocardiogram which was suspicious for cardiac thrombus, GABI confirmed cardiac thrombus. She was changed to lovenox. 02/15/17 hospitalized for chest pain, had acute on chronic DVT in the LLE, she was on a reduced dose of lovenox at that time. She was trialed on eliquis in early 2018 (due to cumulative effects of BID SQ injections) but, had side effects that were intolerable so, she resumed lovenox. She was last seen 07/15/2019, it was discussed changing the dose to 150 mg daily. Pt stated increasing sharp chest pain, associated with SOB, activity intolerance. She denied fevers, neurological symptoms, nausea, sweats. her admit computed tomography scan revealed nonspecific nodules however a mass of 2.79 cm seen in the left lobe of the liver with acute pulmonary embolism involving secondary and distal branches predominantly on the right lower lobe pulmonary infarction of the right side cannot be excluded Objective - Vital Signs Vital signs: Vital Signs Temp 98.1 F 12/14/19 08:00 Pulse 90 08/09/19 08:00 Resp 16 08/09/19 08:00 BP 150/84 08/09/19 08:00 Pulse Ox 96 08/09/19 08:00 Intake & Output 08/08/19 08/09/19 08/09/19 18:59 06:59 18:59 Intake Total 235 1234 240 Balance 235 1234 240 Weight 97.3 kg Intake: IV 115 Heparin Sod,Pork in 0.45% 115 NaCl 25,000 unit In 0.45 % NaCl 1 250ml.bag @ 18 UNITS/KG/HR 17.309 mls/hr IV .[id number] [facility]A Rx#: [id number] Intake, IV Titration 250 Amount Heparin Sod,Pork in 0.45% 250 NaCl 25,000 unit In 0.45 % NaCl 1 250ml.bag @ 18 UNITS/KG/HR 17.309 mls/hr IV .[id number] [facility]A Rx#: [id number] Oral 120 984 240 Other: Voiding Method Toilet # Voids 2 1 - Exam - Constitutional General appearance: disheveled, morbidly obese, no acute distress - EENT Eyes: EOMI, PERRLA, normal appearance ENT: normal oropharynx Ears: bilateral: normal - Neck Neck: normal ROM Carotids: bilateral: upstroke normal - Respiratory Respiratory: bilateral: CTA - Cardiovascular Rhythm: regular Heart sounds: normal: S1, S2 - Gastrointestinal General gastrointestinal: normal bowel sounds, soft - Neurologic Neurologic: CNII-XII intact - Musculoskeletal Musculoskeletal: gait normal, generalized weakness, strength equal bilaterally - Psychiatric Psychiatric: A&O x's 3, appropriate affect, intact judgment & insight - Labs CBC & Chem 7: 08/08/19 06:00 08/08/19 06:00 Labs: Abnormal Lab Results - Last 24 Hours (Table) 08/09/19 Range/Units 05:47 APTT 72.5 H (22.0-30.0) sec Assessment and Plan Assessment: acute pulmonary embolism Pulmonary infarction Chronic history of DVT PE Chest pain right-sided due to pulmonary infarction 2.9 cm mass in the left lobe of the liver Plan: continue heparin for now, Patient will be eventually switched to high-dose Lovenox 100 mg twice a day or 200 mg daily Pain medications Deep breathing exercises incentive spirometry Evaluation as per oncology of left lobe of the liver, both CT and ultrasound have been done Further evaluation pending plan of care as per clinical response of the patient Time with Patient: Greater than 30
--- NOTE | 2019-08-09 11:56 | P.DS ---
Providers Date of admission: 08/06/19 17:30 Expected date of discharge: 08/09/19 Attending physician: Luis Manuel Roberts Consults: 08/06/19 17:30 Consult Physician Urgent Consulting Provider: Murphy Brown Consult Reason/Comments: Pulmonary embolism Do you want consulting provider notified?: Yes 08/07/19 09:12 Consult Physician Routine Consulting Provider: Tono Kidd Consult Reason/Comments: PE, hx of PE,DVT Do you want consulting provider notified?: Yes 08/07/19 09:28 Consult Physician Urgent Consulting Provider: Jose Pal Consult Reason/Comments: PE, ICU management Do you want consulting provider notified?: Yes Primary care physician: Luis Manuel Roberts - Discharge Diagnosis(es) (1) MTHFR gene mutation Current Visit: Yes Status: Acute (2) Factor V Leiden Current Visit: Yes Status: Acute (3) Pulmonary embolism Current Visit: Yes Status: Acute Priority: High (4) Bilateral leg pain Current Visit: No Status: Acute (5) Chest pain Current Visit: No Status: Acute (6) Hx of pulmonary embolus Current Visit: No Status: Acute (7) Recurrent deep vein thrombosis (DVT) of left lower extremity Current Visit: No Status: Acute Priority: High (8) Hypercoagulable state Current Visit: No Status: Chronic Priority: High (9) care home (current) use of anticoagulants Current Visit: Yes Status: Acute (10) Liver mass 2.1 cm, solid Current Visit: Yes Status: Acute (11) Lung mass 3 mm Current Visit: Yes Status: Acute Hospital Course: Patient is a 64-year-old female, patient of Dr. Roberts and Dr Demarco Russell. 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 Patient is on long-term anticoagulation in the form of Lovenox. She was initially on Coumadin, with trials of i.e. Xarelto which caused muscle aches, resumed Coumadin. 10/14/15 she had chest pain, INR was slightly subtherapeutic (1.8), and a spiral CT scan of chest confirmed RML and RLL pulmonary emboli. Echocardiogram which was suspicious for cardiac thrombus, GABI confirmed this. She was changed to lovenox. 02/15/17 hospitalized for chest pain, had acute on chronic DVT in the LLE, she was on a reduced dose of lovenox at that time. She was trialed on eliquis in early 2018 (due to cumulative effects of BID SQ injections) but, had side effects that were intolerable so, she resumed lovenox. She was last seen by Hem/Onc 07/15/2019 for possible Lovenox reduction. Pt stated having increased sharp right sided chest pain, associated with SOB, activity intolerance. She denied fevers, neurological symptoms, nausea, sweats. She came to the ER at [facility] and had a CTA chest with findings compatible with New PE in the secondary and distal branches of the RLL. She also has 2.9 cm left lobe liver mass incidental finding. Currently she is in the ICU with ongoing right sided chest pain. no nause or vomiting. Patient better with rest. 08/08/2019 maintain on heparin drip as per hematology. Chest CT reported 2.9 cm mass in the liver,3 mm middle lobe pulmonary nodule.pain improving, dose decreased, only requiring q shift.T-max 99.2. 08/09/2019: Patient is feeling better with most pain with deep inspiration. The mass found in her liver on CT was confirmed on ultrasound be solid. since she requires long-term anticoagulation, we'll plan outpatient workup for this via oncology. Resume her home medications and her original dose Lovenox 100 mg twice a day she'll continue her current treatments and be reevaluated with a 3 mm right middle lobe pulmonary nodule in 6 months. Patient Condition at Discharge: Fair Plan - Discharge Summary Discharge Rx Participant: No New Discharge Prescriptions: New diphenhydrAMINE [Benadryl] 25 mg PO HS PRN cap PRN Reason: Insomnia Continue Omeprazole [PriLOSEC] 20 mg PO DAILY Furosemide [Lasix] 40 mg PO DAILY PRN PRN Reason: Edema traZODone HCL 150 mg PO HS #0 Acetaminophen [Tylenol] 500 mg PO Q6H PRN PRN Reason: Pain Oxybutynin Chloride [Ditropan] 5 mg PO HS Ergocalciferol (Vitamin D2) [Vitamin D2] 50,000 unit PO SA Magnesium 400 mg PO HS Albuterol Inhaler [Ventolin Hfa Inhaler] 2 puff INHALATION RT-Q6H PRN PRN Reason: Shortness Of Breath Enoxaparin [Lovenox] 100 mg SQ BID Discharge Medication List Furosemide [Lasix] 40 mg PO DAILY PRN 10/14/15 [History] Omeprazole [PriLOSEC] 20 mg PO DAILY 10/14/15 [History] traZODone HCL 150 mg PO HS #0 10/19/15 [Rx] Acetaminophen [Tylenol] 500 mg PO Q6H PRN 02/03/17 [History] Ergocalciferol (Vitamin D2) [Vitamin D2] 50,000 unit PO SA 02/03/17 [History] Oxybutynin Chloride [Ditropan] 5 mg PO HS 02/03/17 [History] Albuterol Inhaler [Ventolin Hfa Inhaler] 2 puff INHALATION RT-Q6H PRN 08/06/19 [History] Enoxaparin [Lovenox] 100 mg SQ BID 08/06/19 [History] Magnesium 400 mg PO HS 08/06/19 [History] diphenhydrAMINE [Benadryl] 25 mg PO HS PRN cap 08/09/19 [Rx] Follow up Appointment(s)/Referral(s): River Biggs MD [Family Provider] - 08/19/19 9:15 am Luis Manuel Roberts MD [Primary Care Provider] - 08/13/19 11:15 am Mark Moran MD [STAFF PHYSICIAN] - 08/11/19 11:30 am Patient Instructions/Handouts: Pulmonary Embolism (DC) Discharge Disposition: HOME SELF-CARE Plan of Treatment: patient will need outpatient workup for the 2.1 cm liver mass found on CT/ultrasound. 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 Patient also needs 6 m/o f/u or 3 mm right middle lobe lung nodule
[2019-08-09] MEDS ORDERED: ENOXAPARIN 100 MG/ML SYRINGE SQ STA (12:08)
== END 2019-08-09 15:20 | disposition home or self-care (01) | DRG 176 ==
LOC: EC 14:53 → 3SCARD 17:30 → 2SICU 08-07 → 3SCARD 08-07 21:21
PROVIDERS: ADMIT Family Medicine; ATTEND Family Medicine
DX: I26.99 Other pulmonary embolism without acute cor pulmonale (principal); E72.12 Methylenetetrahydrofolate reductase deficiency; D68.51 Activated protein C resistance; D68.59 Other primary thrombophilia; I73.9 Peripheral vascular disease, unspecified; K21.9 Gastro-esophageal reflux disease without esophagitis; R16.0 Hepatomegaly, not elsewhere classified; I08.3 Combined rheumatic disorders of mitral, aortic and tricuspid valves; Z79.01 Long term (current) use of anticoagulants; Z79.1 Long term (current) use of non-steroidal anti-inflammatories (NSAID); Z80.1 Family history of malignant neoplasm of trachea, bronchus and lung; Z80.41 Family history of malignant neoplasm of ovary; Z80.52 Family history of malignant neoplasm of bladder; Z86.711 Personal history of pulmonary embolism; Z90.710 Acquired absence of both cervix and uterus; Z90.49 Acquired absence of other specified parts of digestive tract; Z90.89 Acquired absence of other organs; Z98.890 Other specified postprocedural states; Z91.012 Allergy to eggs; Z88.5 Allergy status to narcotic agent; Z91.048 Other nonmedicinal substance allergy status
CPT/HCPCS: 36415; 71046; 71275; 76705; 80048; 80053; 83735; 83880; 84484; 85025; 85379; 85610; 85730; 93005; 93306; 96365; 96366; 96375; 96376; 99285

== ENCOUNTER → 2020-03-02 | Outpatient (CLI) | payer OTHER ==
--- NOTE | 2020-03-02 16:26 | BD ---
EXAMINATION TYPE: Axial Bone Density DATE OF EXAM: 03/02/2020 COMPARISON: 12.18.2017 CLINICAL HISTORY: 64 YR OLD FEMALE.....ICD-10 CODE: Z78.0 POST MENOPAUSAL Height: 66.5 Weight: 216 FRAX RISK QUESTIONS: Glucocorticoids (More than 3mos): YES (Ex: prednisone, prednisolone, methylprednisolone, dexamethasone, and hydrocortisone). 5. Chronic liver disease: SPOT ON LIVER, ? FATTY LIVER RISK FACTORS HISTORY OF: Diet low in dairy products/other sources of calcium: YES, LACTOSE INTOLLERANT Postmenopausal woman: YES AT ABOUT 51 YRS OLD Take estrogen and/or progesterone medications: YES ONLY FOR A SHORT WHILE IN THE PAST Lost more than 2 inches in height since high school: YES Hyperparathyroidism: NO Adrenal Insufficiency: NO MEDICATIONS: Prednisone or other steroids: ADVAIR, AND ALBUTEROL, LOVANOX FOR YRS Additional Medications: DESERIL, REFLUX, K-JEAN CLAUDE, POTASSIUM, BLADDER PILL, VIT D3, Additional History: REFLUX, ANXIETY, OSTEOARTHRITIS EXAM MEASUREMENTS: Bone mineral densitometry was performed using the [employer] System. Bone mineral density as measured about the Lumbar spine is: ----- L1-L4(G/cm2): 1.329 T Score Values are as follows: ----- L1: 1.1 ----- L2: 1.4 ----- L3: 2.0 ----- L4: 0.4 ----- L1-L4: 1.2 Bone mineral density has: Increased 6.0% since study of: 12.18.2017 Bone mineral density about the R hip (g/cm2): 1.133 Bone mineral density about the L hip (g/cm2): 1.022 T Score values are as follows: -----R Neck: 0.1 -----L Neck: -1.0 -----R Total: 1.0 -----L Total: 0.1 Bone mineral density has: Decreased -6.6% since study of: 12.18.2017 FRAX%s: THERE IS A 11.7% CHANCE FOR A MAJOR OSTEOPOROTIC FX AND A 0.9% FOR HIP.....PROBABILITY FOR FX IN 10 YRS TIME IMPRESSION: Normal (Values between +1 and -1 indicate normal bone mass). Consider repeating this study in 5 year s or sooner if there is some new clinical indication. NOTE: T-SCORE=SD OF THE YOUNG ADULT MEAN.
--- NOTE | 2020-03-03 13:39 | MM ---
Reason for exam: screening (asymptomatic). Last mammogram was performed 7 years and 5 months ago. History: Patient is postmenopausal. Family history of breast cancer in maternal aunt at age 43. Took hormonal contraceptives for 4 years beginning at age 17. Took estrogen for 3 years beginning at age 31. Physical Findings: A clinical breast exam by your physician is recommended on an annual basis and results should be correlated with mammographic findings. MG 3D Screening Mammo W/Cad Bilateral CC and MLO view(s) were taken. Prior study comparison: October 02, 2012, CAD bilateral diagnostic mammogram. There are scattered fibroglandular densities. No significant changes when compared with prior studies. ASSESSMENT: Benign, BI-RAD 2 RECOMMENDATION: Routine screening mammogram of both breasts in 1 year.
== END | disposition home or self-care (01) ==
LOC: RADMAMWWP 13:51
PROVIDERS: ATTEND Internal Medicine Hematology & Oncology
DX: Z12.31 Encounter for screening mammogram for malignant neoplasm of breast (principal); Z78.0 Asymptomatic menopausal state
CPT/HCPCS: 77063; 77067; 77080

== ENCOUNTER → 2021-03-31 | Outpatient (CLI) | payer OTHER ==
[2021-03-31 17:29] LABS: African American GFR (CKD) 90.3 (60.0-200.0); Albumin 4.2 g/dL (3.80-4.90); Albumin/Globulin Ratio 1.62 (1.60-3.17); Anion Gap 13.6 mmol/L (4.00-12.00); BUN/Creat Ratio 18.75 Ratio (12.00-20.00); Calcium 9.4 mg/dL (8.7-10.3); Carbon Dioxide 22.4 mmol/L (21.6-31.8); Chol/HDL Ratio 5.61; Globulin 2.6 g/dL (1.6-3.3); Magnesium 1.7 mg/dL (1.5-2.4); Non-African American GFR(CKD) 77.9 (60.0-200.0); Potassium 4.1 mmol/L (3.5-5.5); Total Bilirubin 0.3 mg/dL (0.2-1.2); Total Protein 6.8 g/dL (6.2-8.2)
== END | disposition home or self-care (01) ==
LOC: LABWHC1 08:43
PROVIDERS: ATTEND Nurse Practitioner Adult Health
DX: I10 Essential (primary) hypertension (principal); E78.5 Hyperlipidemia, unspecified
CPT/HCPCS: 36415; 80053; 80061; 83735; 84443; 84481

== ENCOUNTER → 2021-03-31 | Outpatient (CLI) | payer OTHER ==
--- NOTE | 2021-04-04 14:33 | MM ---
Reason for exam: screening (asymptomatic). Last mammogram was performed 1 year and 1 month ago. History: Patient is postmenopausal. Took hormonal contraceptives for 4 years beginning at age 17. Took estrogen for 3 years beginning at age 31. Physical Findings: A clinical breast exam by your physician is recommended on an annual basis and results should be correlated with mammographic findings. MG 3D Screening Mammo W/Cad Bilateral CC and MLO view(s) were taken. Prior study comparison: March 02, 2020, bilateral MG 3d screening mammo w/cad. No significant changes when compared with prior studies. ASSESSMENT: Benign, BI-RAD 2 RECOMMENDATION: Routine screening mammogram of both breasts in 1 year.
== END | disposition home or self-care (01) ==
LOC: RADMAMWWP 08:15
PROVIDERS: ATTEND Internal Medicine Hematology & Oncology
DX: Z12.31 Encounter for screening mammogram for malignant neoplasm of breast (principal)
CPT/HCPCS: 77063; 77067

== ENCOUNTER → 2022-01-10 | Outpatient (CLI) | payer MEDICARE, OTHER ==
[2022-01-10 22:48] LABS: Basophils # (A) 0.02 X 10*3/uL (0.00-0.10); Basophils % (A) 0.4 %; HCT 41.4 % (37.2-46.3); HGB 13.4 g/dL (12.0-15.0); Immature Grans, Automated 0.2 %; Lymphocytes # (A) 1.86 X 10*3/uL (0.90-5.00); Lymphocytes % (A) 37.7 %; MCH 30.2 pg (27.0-32.0); MCHC 32.4 g/dL (32.0-37.0); MCV 93.5 fL (80.0-97.0); Mean Platelet Volume 10.8 fL (9.5-12.2); Monocytes # (A) 0.41 X 10*3/uL (0.20-1.00); Monocytes % (A) 8.3 %; NRBC Per 100 WBC 0 /100 WBCS (0.0-0.0); Neutrophils # (A) 2.44 X 10*3/uL (1.80-7.70); Neutrophils % (A) 49.4 %; Platelet Count 183 X 10*3/uL (140-440); RBC 4.43 X 10*6/uL (4.10-5.20); RDW 13.2 % (11.5-14.5); WBC 4.94 X 10*3/uL (4.50-10.00)
[2022-01-10 23:15] LABS: Erythrocyte Sedimentation Rate 13 mm/Hr (0-30)
[2022-01-11 00:29] LABS: ALT 34 U/L (8-44); AST 28 U/L (13-35); African American GFR (CKD) 85.4 (60.0-200.0); Albumin 4.3 g/dL (3.8-4.9); Albumin/Globulin Ratio 1.47 (1.60-3.17); Alkaline Phosphatase 55 U/L (41-126); BUN/Creat Ratio 11.86 Ratio (12.00-20.00); Blood Urea Nitrogen 9.9 mg/dL (9.0-27.0); C Reactive Protein <0.30 mg/dL (0.00-0.80); Calcium 9.1 mg/dL (8.7-10.3); Carbon Dioxide 20.8 mmol/L (20.0-27.5); Chloride 106 mmol/L (96-109); Globulin 2.9 g/dL (1.6-3.3); Glucose 99 mg/dL (70-110); Magnesium 2.1 mg/dL (1.5-2.4); Non-African American GFR(CKD) 73.7 (60.0-200.0); Rheumatoid Factor, Qnt <10 IU/mL (0-15); Sodium 142 mmol/L (135-145); Total Protein 7.3 g/dL (6.2-8.2)
[2022-01-11 10:29] LABS: HLA B27 NEGATIVE
== END | disposition home or self-care (01) ==
LOC: LABWHC1 14:59
PROVIDERS: ATTEND Family Medicine
DX: M62.838 Other muscle spasm (principal); M51.36 Other intervertebral disc degeneration, lumbar region; H69.83 Other specified disorders of Eustachian tube, bilateral
CPT/HCPCS: 36415; 80053; 83735; 85025; 85652; 86038; 86039; 86140; 86431; 86812

== ENCOUNTER 2023-03-22 14:39 | Emergency (ER) | payer MEDICARE, OTHER ==
[2023-03-22] MEDS ORDERED: PANTOPRAZOLE 40 MG/10 ML VIAL IVP STA (15:19)
[2023-03-22] MEDS ORDERED: SODIUM CHLORIDE 0.9% 1,000 ML IV STA (15:19)
[2023-03-22 15:58] LABS: Anisocytosis Slight; HCT 28.8 % (34.0-46.0); HGB 10.2 gm/dL (11.4-16.0); MCH 35.7 pg (25.0-35.0); MCHC 35.3 g/dL (31.0-37.0); MCV 101.2 fL (80.0-100.0); Macrocytosis Moderate; Mean Platelet Volume 9.9; Platelet Count 65 k/uL (150-450); Poikilocytosis Slight; RBC 2.85 m/uL (3.80-5.40); RDW 19.5 % (11.5-15.5)
[2023-03-22 16:03] LABS: ALT 25 U/L (4-34); AST 36 U/L (14-36); African American GFR (CKD) >90 (>60 ml/min/1.73 sqM); Albumin 3.1 g/dL (3.5-5.0); Alkaline Phosphatase 62 U/L (38-126); Anion Gap 7 mmol/L; Blood Urea Nitrogen 11 mg/dL (7-17); Calcium 8.2 mg/dL (8.4-10.2); Carbon Dioxide 20 mmol/L (22-30); Chloride 107 mmol/L (98-107); Glucose 138 mg/dL (74-99); Lipase 128 U/L (23-300); Non-African American GFR(CKD) >90 (>60 ml/min/1.73 sqM); Potassium 4.4 mmol/L (3.5-5.1); Sodium 134 mmol/L (137-145); Total Bilirubin 0.8 mg/dL (0.2-1.3); Total Protein 5.6 g/dL (6.3-8.2)
[2023-03-22 16:44] LABS: WBC 1.9 k/uL (3.8-10.6)
--- NOTE | 2023-03-22 19:07 | ED ---
GI Bleed HPI - General Chief complaint: GI Bleed Stated complaint: rectal bleeding Time Seen by Provider: 03/22/23 15:18 Source: patient Mode of arrival: wheelchair Limitations: no limitations - History of Present Illness Initial comments: Patient is a 67-year-old female presents to emergency department for rectal bleeding. It started today. Patient had one episode of bright red blood in stool and with wiping. She has no history of GI bleed. She is on Lovenox for factor V Leiden. She denies abdominal pain, nausea, vomiting, fever, chills. Patient has history of glioblastoma she follows with Dr. Moran. Due to recent low platelets patient has not been able to restart chemotherapy. Daughter called the oncology office today patient was sent in for evaluation. - Related Data Home Medications Medication Instructions Recorded Confirmed Albuterol Inhaler [Ventolin Hfa 2 puff INHALATION RT-Q6H PRN 08/06/19 03/22/23 Inhaler] Enoxaparin [Lovenox] 80 mg SQ BID 03/10/23 03/22/23 Omeprazole 20 mg PO DAILY 03/10/23 03/22/23 Ondansetron Odt [Zofran Odt] 8 mg PO Q8HR PRN 03/10/23 03/22/23 carBAMazepine 300 mg PO DAILY 03/10/23 03/22/23 dexAMETHasone [Decadron] 6 mg PO DAILY 03/10/23 03/22/23 levETIRAcetam [Keppra] 1,000 mg PO Q12HR 03/10/23 03/22/23 traZODone HCL [Desyrel] 50 mg PO HS 03/10/23 03/22/23 Ergocalciferol (Vitamin D2) 1,250 mcg PO MO 03/22/23 03/22/23 [Drisdol (50,000 Iu)] Potassium Chloride 20 meq PO DAILY 03/22/23 03/22/23 carBAMazepine [TEGretol] 200 mg PO HS 03/22/23 03/22/23 Previous Rx's Medication Instructions Recorded Pantoprazole [Protonix] 40 mg PO DAILY #14 tab 03/22/23 Allergies Allergy/AdvReac Type Severity Reaction Status Date / Time adhesive Allergy Rash/Hives Verified 03/22/23 17:56 codeine Allergy Rash/Hives Verified 03/22/23 17:56 hydrocodone bitartrate Allergy Rash/Hives Verified 03/22/23 17:56 [From Warren] egg AdvReac Nausea & Verified 03/22/23 17:56 Vomiting & Diarrhea Review of Systems ROS Statement: Those systems with pertinent positive or pertinent negative responses have been documented in the HPI. ROS Other: All systems not noted in ROS Statement are negative. Past Medical History Past Medical History: Blood Disorder, Deep Vein Thrombosis (DVT), GERD/Reflux, Pulmonary Embolus (PE) Additional Past Medical History / Comment(s): MTHFR "coke bottle" L leg, factor 5, beginning macular degeneration bilat, sinus problems. stage 4 glioblastoma History of Any Multi-Drug Resistant Organisms: None Reported Past Surgical History: Appendectomy, Cholecystectomy, Hysterectomy, Orthopedic Surgery Additional Past Surgical History / Comment(s): Kaylyn filter, L achilles tendon repair, left leg stents 3 or 4, R rotator cuff repair, bilateral knee arthroscopies, 2012 ccath normal, GABI, bronchoscopy, R eye sx Past Anesthesia/Blood Transfusion Reactions: No Reported Reaction, Motion Sickness Additional Past Anesthesia/Blood Transfusion Reaction / Comment(s): Pt has marycarmen sterphobia Past Psychological History: No Psychological Hx Reported Smoking Status: Never smoker Past Alcohol Use History: None Reported Past Drug Use History: None Reported - Past Family History Father Family Medical History: Cancer Additional Family Medical History / Comment(s): Father had bladder cancer and lung cancer. Mother Family Medical History: Cancer, Deep Vein Thrombosis (DVT) Additional Family Medical History / Comment(s): Mother of ovarian cancer Sister(s) Family Medical History: Cancer Additional Family Medical History / Comment(s): Ovarian Cancer with metastasis to kidney with urostomy General Exam Limitations: no limitations General appearance: alert Eye exam: Present: normal appearance, PERRL, EOMI. Absent: scleral icterus, conjunctival injection, periorbital swelling Respiratory exam: Present: normal lung sounds bilaterally. Absent: respiratory distress, wheezes, rales, rhonchi, stridor Cardiovascular Exam: Present: regular rate, normal rhythm, normal heart sounds. Absent: systolic murmur, diastolic murmur, rubs, gallop, clicks GI/Abdominal exam: Present: soft, normal bowel sounds. Absent: distended, tenderness, guarding, rebound, rigid Rectal exam: Present: normal rectal tone, heme (+) stool, bloody stool, hemorrhoids (external ). Absent: tenderness Neurological exam: Present: alert Psychiatric exam: Present: normal affect, normal mood Skin exam: Present: warm, dry, intact, normal color. Absent: rash Course Vital Signs 03/22/23 03/22/23 03/22/23 14:58 15:49 17:32 Temperature 97.8 F 97.1 F L 98.0 F Pulse Rate 77 60 60 Respiratory 16 18 16 Rate Blood Pressure 113/73 103/61 103/72 O2 Sat by Pulse 99 98 98 Oximetry 03/22/23 03/22/23 18:03 19:11 Temperature 97.4 F L Pulse Rate 60 73 Respiratory 17 18 Rate Blood Pressure 100/62 102/76 O2 Sat by Pulse 98 98 Oximetry Medical Decision Making - Medical Decision Making Was pt. sent in by a medical professional or institution (, PA, NEON SIGN INSTALLER, urgent care, hospital, or assisted...) When possible be specific @ -Oncology office today Did you speak to anyone other than the patient for history (EMS, parent, family, police, friend...)? What history was obtained from this source @ -Daughter helped provide history about bleeding/oncology call Did you review nursing and triage notes (agree or disagree)? Why? @ -I reviewed and agree with nursing and triage notes Were old charts reviewed (outside hosp., previous admission, EMS record, old EKG, old radiological studies, urgent care reports/EKG's, assisted records)? Report findings @ -No old charts were reviewed Differential Diagnosis (chest pain, altered mental status, abdominal pain women, abdominal pain men, vaginal bleeding, weakness, fever, dyspnea, syncope, headache, dizziness, GI bleed, back pain, seizure, CVA, palpatations, mental health)? @ -Differential GI Bleed: Esophageal varices, aortoenteric fistula, Jenni-Rome, gastritis, peptic ulcer disease, diverticulosis, inflammatory bowel disease, hemorrhoids, fissure, colitis, malignancy, Meckels diverticulum, this is not meant to be an all- inclusive list. EKG interpreted by me (3pts min.). @ -As above X-rays interpreted by me (1pt min.). @ -None done CT interpreted by me (1pt min.). @ -None done U/S interpreted by me (1pt. min.). @ -None done What testing was considered but not performed or refused? (CT, X-rays, U/S, labs)? Why? @ -None What meds were considered but not given or refused? Why? @ -None Did you discuss the management of the patient with other professionals (professionals i.e. Dr., PA, NEON SIGN INSTALLER, lab, RT, psych nurse, geriatric social work professor, superintendent, teacher, activities officer, bilingual case manager)? Give summary @ -No Was smoking cessation discussed for >3mins.? @ -No Was critical care preformed (if so, how long)? @ -No Were there social determinants of health that impacted care today? How? (Homelessness, low income, unemployed, alcoholism, drug addiction, transportation, low edu. Level, literacy, decrease access to med. care, nursing home, rehab)? @ -No Was there de-escalation of care discussed even if they declined (Discuss DNR or withdrawal of care, Hospice)? DNR status @ -No What co-morbidities impacted this encounter? (DM, HTN, Smoking, COPD, CAD, Cancer, CVA, ARF, Chemo, Hep., AIDS, mental health diagnosis, sleep apnea, morbid obesity)? @ -None Was patient admitted / discharged? Hospital course, mention meds given and route, prescriptions, significant lab abnormalities, going to OR and other pertinent info. @This is a 67-year-old female presenting with painless rectal bleeding. Patient is well-appearing blood pressure and pulse stable. On exam gross blood is noted in the rectal area without hemorrhage. Patient does have external hemorrhoid s.Laboratory studies obtained. Hemoglobin is stable at 10.2, improved from 9.5 at previous visit on 03/10. There is leukopenia at 1.9, increased from 0.9 previous visit. Platelets are low at 65, similar to previous visit at 58. Patient did not have any further bleeding per rectum during her visit. I discussed case with Dr. Kidd patient will continue Lovenox as her platelets are above 50. He recommended observation this was discussed with patient and family who decline. Patient wants to go home. We discussed strict return parameters. Patient has an appointment with Dr. Moran tomorrow. Undiagnosed new problem with uncertain prognosis? @ -No Drug Therapy requiring intensive monitoring for toxicity (Heparin, Nitro, Insulin, Cardizem)? @ -No Were any procedures done? @ -No Diagnosis/symptom? @ -GI bleed Acute, or Chronic, or Acute on Chronic? @ -acute Uncomplicated (without systemic symptoms) or Complicated (systemic symptoms)? @ uncomplicated Side effects of treatment? @ -No Exacerbation, Progression, or Severe Exacerbation? @ -No Poses a threat to life or bodily function? How? (Chest pain, [place], [place], pneumonia, PE, COPD, DKA, ARF, appy, cholecystitis, CVA, Diverticulitis, Homicidal, Suici brock, threat to staff... and all critical care pts) @ -Not currently Dr. Joy is my attending - Lab Data Result diagrams: 03/22/23 02:17 03/22/23 15:37 Lab Results 03/22/23 03/22/23 03/22/23 Range/Units 02:17 15:37 15:37 WBC 1.9 L (3.8-10.6) k/uL RBC 2.85 L (3.80-5.40) m/uL Hgb 10.2 L (11.4-16.0) gm/dL Hct 28.8 L (34.0-46.0) % MCV 101.2 H (80.0-100.0) fL MCH 35.7 H (25.0-35.0) pg MCHC 35.3 (31.0-37.0) g/dL RDW 19.5 H (11.5-15.5) % Plt Count 65 L (150-450) k/uL MPV 9.9 Neutrophils % Not Reportable Neutrophils % (Manual) 42 % Lymphocytes % Not Reportable Lymphocytes % (Manual) 50 % Monocytes % Not Reportable Monocytes % (Manual) 7 % Eosinophils % Not Reportable Eosinophils % (Manual) 1 % Basophils % Not Reportable Neutrophils # Not Reportable Neutrophils # (Manual) 0.80 L (1.3-7.7) k/uL Lymphocytes # Not Reportable Lymphocytes # (Manual) 0.95 L (1.0-4.8) k/uL Monocytes # Not Reportable Monocytes # (Manual) 0.13 (0-1.0) k/uL Eosinophils # Not Reportable Eosinophils # (Manual) 0.02 (0-0.7) k/uL Basophils # Not Reportable Nucleated RBCs 1 H (0-0) /100 WBC Manual Slide Review Performed Poikilocytosis Slight Anisocytosis Slight Macrocytosis Moderate APTT 25.2 (22.0-30.0) sec Sodium (137-145) mmol/L Potassium (3.5-5.1) mmol/L Chloride (98-107) mmol/L Carbon Dioxide (22-30) mmol/L Anion Gap mmol/L BUN (7-17) mg/dL Creatinine (0.52-1.04) mg/dL Est GFR (CKD-EPI)AfAm (>60 ml/min/1.73 sqM) Est GFR (CKD-EPI)NonAf (>60 ml/min/1.73 sqM) Glucose (74-99) mg/dL Plasma Lactic Acid Ramos (0.7-2.0) mmol/L Calcium (8.4-10.2) mg/dL Total Bilirubin (0.2-1.3) mg/dL AST (14-36) U/L ALT (4-34) U/L Alkaline Phosphatase (38-126) U/L Troponin I (0.000-0.034) ng/mL Total Protein (6.3-8.2) g/dL Albumin (3.5-5.0) g/dL Lipase (23-300) U/L Stool Occult Blood Positive H (Negative) Blood Type Blood Type Recheck Bld Type Recheck Status Antibody Screen Spec Expiration Date 03/22/23 03/22/23 03/22/23 Range/Units 15:37 15:37 15:37 WBC (3.8-10.6) k/uL RBC (3.80-5.40) m/uL Hgb (11.4-16.0) gm/dL Hct (34.0-46.0) % MCV (80.0-100.0) fL MCH (25.0-35.0) pg MCHC (31.0-37.0) g/dL RDW (11.5-15.5) % Plt Count (150-450) k/uL MPV Neutrophils % Neutrophils % (Manual) % Lymphocytes % Lymphocytes % (Manual) % Monocytes % Monocytes % (Manual) % Eosinophils % Eosinophils % (Manual) % Basophils % Neutrophils # Neutrophils # (Manual) (1.3-7.7) k/uL Lymphocytes # Lymphocytes # (Manual) (1.0-4.8) k/uL Monocytes # Monocytes # (Manual) (0-1.0) k/uL Eosinophils # Eosinophils # (Manual) (0-0.7) k/uL Basophils # Nucleated RBCs (0-0) /100 WBC Manual Slide Review Poikilocytosis Anisocytosis Macrocytosis APTT (22.0-30.0) sec Sodium 134 L (137-145) mmol/L Potassium 4.4 (3.5-5.1) mmol/L Chloride 107 (98-107) mmol/L Carbon Dioxide 20 L (22-30) mmol/L Anion Gap 7 mmol/L BUN 11 (7-17) mg/dL Creatinine 0.48 L (0.52-1.04) mg/dL Est GFR (CKD-EPI)AfAm >90 (>60 ml/min/1.73 sqM) Est GFR (CKD-EPI)NonAf >90 (>60 ml/min/1.73 sqM) Glucose 138 H (74-99) mg/dL Plasma Lactic Acid Ramos 1.3 (0.7-2.0) mmol/L Calcium 8.2 L (8.4-10.2) mg/dL Total Bilirubin 0.8 (0.2-1.3) mg/dL AST 36 (14-36) U/L ALT 25 (4-34) U/L Alkaline Phosphatase 62 (38-126) U/L Troponin I <0.012 (0.000-0.034) ng/mL Total Protein 5.6 L (6.3-8.2) g/dL Albumin 3.1 L (3.5-5.0) g/dL Lipase 128 (23-300) U/L Stool Occult Blood (Negative) Blood Type Blood Type Recheck Bld Type Recheck Status Antibody Screen Spec Expiration Date 03/22/23 Range/Units 15:37 WBC (3.8-10.6) k/uL RBC (3.80-5.40) m/uL Hgb (11.4-16.0) gm/dL Hct (34.0-46.0) % MCV (80.0-100.0) fL MCH (25.0-35.0) pg MCHC (31.0-37.0) g/dL RDW (11.5-15.5) % Plt Count (150-450) k/uL MPV Neutrophils % Neutrophils % (Manual) % Lymphocytes % Lymphocytes % (Manual) % Monocytes % Monocytes % (Manual) % Eosinophils % Eosinophils % (Manual) % Basophils % Neutrophils # Neutrophils # (Manual) (1.3-7.7) k/uL Lymphocytes # Lymphocytes # (Manual) (1.0-4.8) k/uL Monocytes # Monocytes # (Manual) (0-1.0) k/uL Eosinophils # Eosinophils # (Manual) (0-0.7) k/uL Basophils # Nucleated RBCs (0-0) /100 WBC Manual Slide Review Poikilocytosis Anisocytosis Macrocytosis APTT (22.0-30.0) sec Sodium (137-145) mmol/L Potassium (3.5-5.1) mmol/L Chloride (98-107) mmol/L Carbon Dioxide (22-30) mmol/L Anion Gap mmol/L BUN (7-17) mg/dL Creatinine (0.52-1.04) mg/dL Est GFR (CKD-EPI)AfAm (>60 ml/min/1.73 sqM) Est GFR (CKD-EPI)NonAf (>60 ml/min/1.73 sqM) Glucose (74-99) mg/dL Plasma Lactic Acid Ramos (0.7-2.0) mmol/L Calcium (8.4-10.2) mg/dL Total Bilirubin (0.2-1.3) mg/dL AST (14-36) U/L ALT (4-34) U/L Alkaline Phosphatase (38-126) U/L Troponin I (0.000-0.034) ng/mL Total Protein (6.3-8.2) g/dL Albumin (3.5-5.0) g/dL Lipase (23-300) U/L Stool Occult Blood (Negative) Blood Type A Negative Blood Type Recheck A Neg Bld Type Recheck Status No Antibody Screen NEGATIVE Spec Expiration Date 03/25/20232336 Disposition Clinical Impression: GI bleed, Pancytopenia Disposition: HOME SELF-CARE Condition: Good Instructions (If sedation given, give patient instructions): Gastrointestinal Bleeding (ED) Additional Instructions: Take medication as directed. Please follow-up with GI specialist and oncology 1- 2 days. Return to the emergency department if you experience new, concerning, or worsening symptoms, including but not limited to, increased bleeding or lightheadedness, dizziness. Prescriptions: Pantoprazole [Protonix] 40 mg PO DAILY #14 tab Is patient prescribed a controlled substance at d/c from ED?: No Referrals: Nonstaff,Physician [Primary Care Provider] - 1-2 days Kathy Salguero MD [STAFF PHYSICIAN] - 1-2 days
[2023-03-22 19:15] VITALS: BP 102/76; PULSE 73; RESP 18; TEMP 97.4
[2023-03-22 19:20] LABS: Eosinophils # (M) 0.02 k/uL (0-0.7); Lymphocytes # (M) 0.95 k/uL (1.0-4.8); Monocytes # (M) 0.13 k/uL (0-1.0); Neutrophils % (M) 42 %; Nucleated Red Blood Cells 1 /100 WBC (0-0); Total Cells Counted 100
== END 2023-03-22 19:18 | disposition home or self-care (01) ==
LOC: EC 14:39
DX: K92.2 Gastrointestinal hemorrhage, unspecified (principal); D61.818 Other pancytopenia; K21.9 Gastro-esophageal reflux disease without esophagitis; Z86.718 Personal history of other venous thrombosis and embolism; Z88.5 Allergy status to narcotic agent; Z91.012 Allergy to eggs; Z88.8 Allergy status to other drugs, medicaments and biological substances; Z79.899 Other long term (current) drug therapy
CPT/HCPCS: 36415; 86900; 86901; 80053; 83605; 83690; 84484; 85025; 85730; 86850; 82272; 99285; 96374; 96361; C9113